=== PATIENT | female | born 1940 | race Caucasian/White ===

== ENCOUNTER 2017-10-08 09:06 | Day surgery (SDC) | payer MEDICARE, MEDICAID ==
[2017-10-07 16:13] LABS: BASOPHILS % (AUTO) 0.5 % (0-1); EOSINOPHILS # (AUTO) 0.2 X10'3 (0-0.9); EOSINOPHILS % (AUTO) 2.3 % (0-6); HEMATOCRIT 43.4 % (35.0-45.0); HEMOGLOBIN 14.3 g/dl (12.0-16.0); LYMPHOCYTES # (AUTO) 1.7 X10'3 (1.1-4.8); LYMPHOCYTES % (AUTO) 21.7 % (21-51); MEAN CORPUSCULAR VOLUME 81.8 FL (78-98); MEAN PLATELET VOLUME 10.2 FL (7.4-10.4); MONOCYTES # (AUTO) 0.5 X10'3 (0-0.9); NEUTROPHILS # (AUTO) 5.3 X10'3 (1.8-7.7); NEUTROPHILS % (AUTO) 68.5 % (42-75); PLATELET COUNT 132 X10'3 (140-440); WHITE BLOOD COUNT 7.8 X10'3 (4.5-11.0)
[2017-10-07 16:21] LABS: INR 1.1 INR
[2017-10-07 16:22] LABS: ALBUMIN 3.3 G/DL (3.4-5.0); ANION GAP 5 (8-16); BLOOD UREA NITROGEN 35 MG/DL (7-18); BUN/CREATININE RATIO 23.3 (6.6-38.0); CALCIUM 8.9 MG/DL (8.5-10.1); CHLORIDE 104 MMOL/L (99-107); GLUCOSE 127 MG/DL (70-104); POTASSIUM 4.6 MMOL/L (3.5-5.1); SODIUM 141 MMOL/L (135-145); TOTAL CARBON DIOXIDE 31.7 MMOL/L (24-32); eGFR 34 ML/MIN
[2017-10-08] VITALS (18 sets, daily range): BP systolic 75–121; BP diastolic 36–84
[~2017-10-08] VITALS: Ht 149.9 cm; Wt 116.9 kg
[~2017-10-08 09:06] MED LIST: ACET-2119 PO; CHOL10002 PO; DOCU100C41 PO; FLUT15.810; FURO-150 PO; LEVO75TA57 PO; LORA10TA7 PO; MULT-360; PANT40SU2 PO; PREG200C PO; RIVA20TA PO; SIMV20TA5 PO; TRAM50TA2 PO
[2017-10-08] MEDS ORDERED: PREG200C PO (11:52)
[2017-10-08] MEDS ORDERED: SIMV40TA4 PO (11:54)
[2017-10-08] MEDS ORDERED: LORA10TA7 PO (11:55)
[2017-10-08] MEDS ORDERED: SOTA80TA10 PO (11:57)
[2017-10-08] MEDS ORDERED: fentaNYL/PF 50MCG/1 ML 2ML syringe IV ONE (12:00)
[2017-10-08] MEDS ORDERED: LORazepam 0.5 MG tablet PO PRN (12:00)
[2017-10-08] MEDS ORDERED: MIDAZolam 1mg/ml 10ml vial IV ONE (12:00)
[2017-10-08] MEDS ORDERED: diphenhydrAMINE 25mg capsule PO PRN (12:00)
[2017-10-08] MEDS ORDERED: normal saline 1000ml 1,000 ML IV SCH (12:00)
[2017-10-08] MEDS ORDERED: LISI-604 PO (12:00)
[2017-10-08] MEDS ORDERED: atropine 0.1mg/ml 10ml syringe IV ONE (12:10)
[2017-10-08] MEDS ORDERED: amiodarone in dextrose, iso-osm 150mg/100ml bag IV ONE (12:10)
[2017-10-08] MEDS ORDERED: PREG100C PO (12:54)
== END 2017-10-08 18:35 | disposition home or self-care (01) ==
LOC: SSTAY O 09:06
PROVIDERS: ATTEND Internal Medicine Cardiovascular Disease
DX: I48.0 Paroxysmal atrial fibrillation (principal); I25.10 Atherosclerotic heart disease of native coronary artery without angina pectoris; I11.0 Hypertensive heart disease with heart failure; I50.32 Chronic diastolic (congestive) heart failure; E78.5 Hyperlipidemia, unspecified; I35.0 Nonrheumatic aortic (valve) stenosis; G47.30 Sleep apnea, unspecified; J44.9 Chronic obstructive pulmonary disease, unspecified
CPT/HCPCS: 36415; 80048; 85025; 85610; 92960; 93005; J0461; J2250; J3010; J7030; Q0163; A4620; J0282

== ENCOUNTER 2017-10-16 11:44 | Outpatient (CLI) | payer MEDICARE, MEDICAID ==
[~2017-10-16 11:44] MED LIST changes: -DOCU100C41 PO; -FLUT15.810; +LISI-604 PO; +PREG100C PO; -PREG200C PO; -SIMV20TA5 PO; +SIMV40TA4 PO; +SOTA80TA10 PO; -TRAM50TA2 PO
[2017-10-16 13:13] LABS: ANION GAP 9 (8-16); BLOOD UREA NITROGEN 17 MG/DL (7-18); BUN/CREATININE RATIO 16.3 (6.6-38.0); CHLORIDE 107 MMOL/L (99-107); CREATININE 1.04 MG/DL (0.40-0.90); GLUCOSE 134 MG/DL (70-104); POTASSIUM 4.8 MMOL/L (3.5-5.1); SODIUM 145 MMOL/L (135-145); TOTAL CARBON DIOXIDE 29.3 MMOL/L (24-32); eGFR 51 ML/MIN
== END 2017-10-16 23:59 | disposition home or self-care (01) ==
LOC: LAB 11:44
PROVIDERS: ATTEND Internal Medicine Cardiovascular Disease
DX: R06.02 Shortness of breath (principal); J45.909 Unspecified asthma, uncomplicated; I12.9 Hypertensive chronic kidney disease with stage 1 through stage 4 chronic kidney disease, or unspecified chronic kidney disease; E11.22 Type 2 diabetes mellitus with diabetic chronic kidney disease; N18.9 Chronic kidney disease, unspecified
CPT/HCPCS: 36415; 80048; 83880

== ENCOUNTER 2017-11-03 13:42 | Inpatient (IN) | payer MEDICARE, MEDICAID ==
[~2017-11-03] VITALS: Ht 149.9 cm; Wt 120.5 kg
[2017-11-03] MEDS ORDERED: normal saline 1000ml 1,000 ML IV ONE (14:07)
[2017-11-03 14:59] LABS: BASOPHILS % (AUTO) 0.4 % (0-1); EOSINOPHILS # (AUTO) 0.1 X10'3 (0-0.9); EOSINOPHILS % (AUTO) 1.6 % (0-6); HEMATOCRIT 39.3 % (35.0-45.0); LYMPHOCYTES # (AUTO) 1.9 X10'3 (1.1-4.8); MEAN CORPUSCULAR HEMOGLOBIN 26.6 PG (27.0-31.0); MEAN CORPUSCULAR VOLUME 80.6 FL (78-98); MEAN PLATELET VOLUME 10.1 FL (7.4-10.4); MONOCYTES # (AUTO) 0.7 X10'3 (0-0.9); MONOCYTES % (AUTO) 10.3 % (2-12); NEUTROPHILS # (AUTO) 4.3 X10'3 (1.8-7.7); NEUTROPHILS % (AUTO) 60.7 % (42-75); PLATELET COUNT 114 X10'3 (140-440); RED BLOOD COUNT 4.88 X10'6 (4.20-5.60); RED CELL DISTRIBUTION WIDTH 18.4 % (11.5-14.5); WHITE BLOOD COUNT 7.1 X10'3 (4.5-11.0)
[2017-11-03] MEDS ORDERED: NORepinephrine 1 mg/ml inj IV ONE (15:00)
[2017-11-03 15:09] LABS: INR 1.1 INR; PARTIAL THROMBOPLASTIN TIME 29 SECONDS (22-32); PROTHROMBIN TIME 11.3 SECONDS (9.0-12.0)
[2017-11-03 15:23] LABS: CREATINE KINASE 41 U/L (26-192)
[2017-11-03 16:17] LABS: ALANINE AMINOTRANSFERASE 13 U/L (12-78); ALBUMIN 3.1 G/DL (3.4-5.0); ALBUMIN/GLOBULIN RATIO 0.9 (1.1-1.5); ALKALINE PHOSPHATASE 66 IU/L (46-116); ANION GAP 10 (8-16); ASPARTATE AMINO TRANSFERASE 12 U/L (10-37); BILIRUBIN,TOTAL 0.8 MG/DL (0.1-1.0); BLOOD UREA NITROGEN 22 MG/DL (7-18); BUN/CREATININE RATIO 23.7 (6.6-38.0); CALCIUM 8.5 MG/DL (8.5-10.1); CHLORIDE 107 MMOL/L (99-107); CREATININE 0.93 MG/DL (0.40-0.90); GLUCOSE 94 MG/DL (70-104); SODIUM 145 MMOL/L (135-145); TOTAL CARBON DIOXIDE 27.9 MMOL/L (24-32); TOTAL PROTEIN 6.5 G/DL (6.4-8.2); eGFR 58 ML/MIN
[2017-11-03] MEDS ORDERED: iohexol 350MG/ML 100ml bottle IV ONE (18:03)
[2017-11-03] MEDS ORDERED: Fluticasone (18:05)
[2017-11-03] MEDS ORDERED: POTA20LI (18:05)
[2017-11-03] MEDS ORDERED: FLUT1AER (18:05)
[2017-11-03] MEDS ORDERED: DEXT15DR26 (18:05)
[2017-11-03] MEDS ORDERED: MONT10TA24 (18:05)
[2017-11-03] MEDS ORDERED: ROSU20TA38 (18:05)
[2017-11-03] MEDS ORDERED: DEXT15DR25 (18:05)
[2017-11-03 18:06] LABS: ABG HCO3 28.5 mmol/L (22.0-26.0); ABG PCO2 (T) 46.8 mmHg (32.0-45.0); ABG PH (T) 7.402 (7.350-7.450); ABG PO2 (T) 52.3 mmHg (83-108); ALLEN'S TEST Positive; FCOHb 1.3 % (0.5-1.5); FMetHb 0.1 % (0.3-1.12); FO2Hb 85.8 % (94-100); TOTAL HEMOGLOBIN 13.1 G/dl (12.0-16.0)
[2017-11-03] MEDS ORDERED: magnesium Cl slow-release 64mg tablet PO PRN (20:20)
[2017-11-03] MEDS ORDERED: potassium Cl 40MEQ/NS 500ml 500 ML IV PRN ×2 (20:20)
[2017-11-03] MEDS ORDERED: potassium Cl 20 mEq SR tablet PO PRN ×2 (20:20)
[2017-11-03] MEDS ORDERED: acetaminophen 325mg tablet PO PRN (20:20)
[2017-11-03] MEDS ORDERED: magnesium 2GM in 50ml NS 50 ML IV PRN (20:20)
[2017-11-03] MEDS ORDERED: mag hydrox/Alum hydrox/simeth 30ml oral suspension PO PRN (20:20)
[2017-11-03] MEDS ORDERED: insulin Lispro (HumaLOG) vial - multi-dose SQ SCH (20:20)
[2017-11-03] MEDS ORDERED: magnesium hydroxide 30ml (MOM) UD suspension PO PRN (20:20)
[2017-11-03] MEDS ORDERED: dextrose 50%-water 50ml dispensing syringe IV PRN ×2 (20:20)
[2017-11-03] MEDS ORDERED: bisacodyl 10mg suppository rectal RC PRN (20:20)
[2017-11-03] MEDS ORDERED: MESSAGE TO PHARMACY PO ONE (20:20)
[2017-11-03] MEDS ORDERED: glucagon, human recombinant 1mg kit SUBCUT PRN (20:20)
[2017-11-03] MEDS ORDERED: dextrose ORAL solution 15 GM/59 ML bottle PO PRN ×2 (20:20)
[2017-11-03] MEDS ORDERED: magnesium 4gm in 100ml NS 100 ML IV PRN (20:20)
[2017-11-03] MEDS ORDERED: ROSUVASTATIN CALCIUM 20 MG SCH (21:00)
[2017-11-03] MEDS: insulin glargine (Lantus) pen - multi-dose SQ SCH (21:00)
[2017-11-03] MEDS: rivaroxaban 20mg tablet PO SCH (21:02)
[2017-11-03] MEDS: levoFLOXACIN 750MG TABLET PO SCH (21:02)
[2017-11-03] MEDS: atorvastatin 20mg tablet PO SCH (21:03)
[2017-11-03] MEDS: methylPREDNISolone sod succ 125mg/2ml vial IV SCH (21:04)
[2017-11-03] MEDS: acetaminophen 325mg tablet PO PRN (22:36)
[2017-11-03 23:07] LABS: CLARITY,URINE CLEAR (Clear); COLOR,URINE YELLOW (Yellow); GLUCOSE, URINE NEGATIVE (Neg); KETONES,URINE NEGATIVE (Neg); LEUKOCYTE ESTERASE ,URINE NEGATIVE (Neg); NITRITES, URINE NEGATIVE (Neg); OCCULT BLOOD,URINE NEGATIVE (Neg); PH,URINE 5.5 (4.8-8.0); PROTEIN,URINE NEGATIVE (Neg); UROBILINOGEN,URINE 0.2 E.U/dL (0.2-1.0)
[2017-11-03 23:13] LABS: UA COLLECTION TYPE CLN CATCH MIDSTREAM
[2017-11-04] MEDS: ipratropium/albuterol 3ml nebule NEB SCH ×7 (00:26→23:55)
[2017-11-04] MEDS: methylPREDNISolone sod succ 125mg/2ml vial IV SCH ×3 (00:46→15:33)
[2017-11-04 02:38] LABS: BASOPHILS % (AUTO) 0 % (0-1); EOSINOPHILS # (AUTO) 0.1 X10'3 (0-0.9); EOSINOPHILS % (AUTO) 1.2 % (0-6); HEMATOCRIT 40.2 % (35.0-45.0); HEMOGLOBIN 13.2 g/dl (12.0-16.0); LYMPHOCYTES % (AUTO) 13.2 % (21-51); MEAN CORPUSCULAR HEMOGLOBIN 26.8 PG (27.0-31.0); MEAN CORPUSCULAR HGB CONC 32.8 % (33.0-36.5); MEAN CORPUSCULAR VOLUME 81.5 FL (78-98); MEAN PLATELET VOLUME 10.3 FL (7.4-10.4); MONOCYTES # (AUTO) 0.1 X10'3 (0-0.9); MONOCYTES % (AUTO) 1.2 % (2-12); NEUTROPHILS # (AUTO) 6.6 X10'3 (1.8-7.7); NEUTROPHILS % (AUTO) 84.4 % (42-75); PLATELET COUNT 99 X10'3 (140-440); RED BLOOD COUNT 4.93 X10'6 (4.20-5.60); WHITE BLOOD COUNT 7.8 X10'3 (4.5-11.0)
[2017-11-04 02:56] LABS: ALANINE AMINOTRANSFERASE 17 U/L (12-78); ALBUMIN/GLOBULIN RATIO 0.8 (1.1-1.5); ALKALINE PHOSPHATASE 67 IU/L (46-116); ANION GAP 6 (8-16); ASPARTATE AMINO TRANSFERASE 13 U/L (10-37); BILIRUBIN,TOTAL 0.6 MG/DL (0.1-1.0); BLOOD UREA NITROGEN 23 MG/DL (7-18); BUN/CREATININE RATIO 20.5 (6.6-38.0); CALCIUM 8.4 MG/DL (8.5-10.1); CHLORIDE 108 MMOL/L (99-107); CREATININE 1.12 MG/DL (0.40-0.90); GLUCOSE 151 MG/DL (70-104); MAGNESIUM 1.7 MG/DL (1.5-2.4); POTASSIUM 4.7 MMOL/L (3.5-5.1); SODIUM 144 MMOL/L (135-145); TOTAL CARBON DIOXIDE 29.8 MMOL/L (24-32); TOTAL PROTEIN 6.6 G/DL (6.4-8.2); eGFR 47 ML/MIN
[2017-11-04] MEDS: K and/or MAG REPLACEMENT MC SCH (07:19)
[2017-11-04] MEDS ORDERED: non-formulary drug (Pantoprazole Sodium (Protonix) 40 MG) PO SCH (08:00)
[2017-11-04] MEDS ORDERED: FLUTICASONE 50 MCG SCH (08:00)
[2017-11-04] MEDS ORDERED: non-formulary drug (Cholecalciferol (Vitamin D3) (Vitamin D3) 1 TAB) PO SCH (08:00)
[2017-11-04] MEDS: enoxaparin 40mg/0.4ml syringe SUBCUT SCH (08:00)
[2017-11-04] MEDS: fluticasone nasal spray 16GM bottle NS SCH (08:00)
[2017-11-04] MEDS ORDERED: non-formulary drug (Pregabalin (Lyrica) 1 CAP) PO SCH (08:00)
[2017-11-04] MEDS: docusate sod 100mg capsule PO SCH ×2 (08:56→20:23)
[2017-11-04] MEDS: lisinopril 5mg tablet PO SCH (08:56)
[2017-11-04] MEDS: loratadine 10mg tablet PO SCH (08:57)
[2017-11-04] MEDS: vitamin D (cholecalciferol) 1,000 unit tablet PO SCH (08:57)
[2017-11-04] MEDS: levoTHYROXINE 75mcg tablet PO SCH (08:58)
[2017-11-04] MEDS: levoFLOXACIN 750MG TABLET PO SCH (08:58)
[2017-11-04] MEDS: pregabalin 25mg capsule PO SCH ×2 (08:59→20:21)
[2017-11-04] MEDS: pantoprazole 40mg Tablet.DR PO SCH (09:00)
[2017-11-04] MEDS: montelukast 10mg tablet PO SCH (09:01)
[2017-11-04] MEDS: potassium Cl oral solution 20 MEQ/15 ML PO SCH (09:01)
[2017-11-04] MEDS: furosemide 20MG tablet PO SCH ×2 (09:02→20:22)
[2017-11-04 13:35] VITALS: BP 123/56
[2017-11-04 15:00] VITALS: BP 130/47
[2017-11-04] MEDS: lactobacillus rhamnosus 10,000 MMU CELLS/CAPSULE PO SCH (17:34)
[2017-11-04 19:00] VITALS: BP 145/68
[2017-11-04] MEDS: atorvastatin 20mg tablet PO SCH (20:24)
[2017-11-04] MEDS: rivaroxaban 20mg tablet PO SCH (20:24)
[2017-11-04] MEDS: insulin glargine (Lantus) pen - multi-dose SQ SCH (21:00)
[2017-11-04 23:00] VITALS: BP 125/46
[2017-11-05] MEDS: methylPREDNISolone sod succ 125mg/2ml vial IV SCH ×3 (00:29→16:21)
[2017-11-05 03:00] VITALS: BP 143/57
[2017-11-05] MEDS: ipratropium/albuterol 3ml nebule NEB SCH ×6 (03:46→23:47)
[2017-11-05 05:26] LABS: BASOPHILS % (AUTO) 0.1 % (0-1); EOSINOPHILS # (AUTO) 0.1 X10'3 (0-0.9); EOSINOPHILS % (AUTO) 1.1 % (0-6); HEMATOCRIT 39.9 % (35.0-45.0); LYMPHOCYTES # (AUTO) 0.9 X10'3 (1.1-4.8); LYMPHOCYTES % (AUTO) 13.8 % (21-51); MEAN CORPUSCULAR HEMOGLOBIN 26.4 PG (27.0-31.0); MEAN CORPUSCULAR HGB CONC 32.7 % (33.0-36.5); MEAN CORPUSCULAR VOLUME 80.9 FL (78-98); MEAN PLATELET VOLUME 10.5 FL (7.4-10.4); MONOCYTES # (AUTO) 0.1 X10'3 (0-0.9); MONOCYTES % (AUTO) 2.1 % (2-12); NEUTROPHILS # (AUTO) 5.5 X10'3 (1.8-7.7); NEUTROPHILS % (AUTO) 82.9 % (42-75); PLATELET COUNT 107 X10'3 (140-440); RED BLOOD COUNT 4.93 X10'6 (4.20-5.60); RED CELL DISTRIBUTION WIDTH 18.2 % (11.5-14.5); WHITE BLOOD COUNT 6.7 X10'3 (4.5-11.0)
[2017-11-05 05:41] LABS: ALANINE AMINOTRANSFERASE 18 U/L (12-78); ALBUMIN 3.2 G/DL (3.4-5.0); ALBUMIN/GLOBULIN RATIO 0.8 (1.1-1.5); ALKALINE PHOSPHATASE 62 IU/L (46-116); ANION GAP 7 (8-16); ASPARTATE AMINO TRANSFERASE 15 U/L (10-37); BILIRUBIN,TOTAL 0.6 MG/DL (0.1-1.0); BLOOD UREA NITROGEN 26 MG/DL (7-18); BUN/CREATININE RATIO 24.5 (6.6-38.0); CALCIUM 8.9 MG/DL (8.5-10.1); CHLORIDE 105 MMOL/L (99-107); CREATININE 1.06 MG/DL (0.40-0.90); GLUCOSE 174 MG/DL (70-104); MAGNESIUM 1.9 MG/DL (1.5-2.4); POTASSIUM 4.1 MMOL/L (3.5-5.1); SODIUM 144 MMOL/L (135-145); TOTAL CARBON DIOXIDE 31.6 MMOL/L (24-32); eGFR 50 ML/MIN
[2017-11-05 06:00] VITALS: BP 133/52
[2017-11-05] MEDS ORDERED: hypromellose ophthalmic drops EACHEYE SCH (08:00)
[2017-11-05] MEDS: K and/or MAG REPLACEMENT MC SCH (08:00)
[2017-11-05] MEDS: potassium Cl oral solution 20 MEQ/15 ML PO SCH (08:21)
[2017-11-05] MEDS: lisinopril 5mg tablet PO SCH (08:21)
[2017-11-05] MEDS: montelukast 10mg tablet PO SCH (08:21)
[2017-11-05] MEDS: lactobacillus rhamnosus 10,000 MMU CELLS/CAPSULE PO SCH ×2 (08:21→16:59)
[2017-11-05] MEDS: vitamin D (cholecalciferol) 1,000 unit tablet PO SCH (08:22)
[2017-11-05] MEDS: pantoprazole 40mg Tablet.DR PO SCH (08:22)
[2017-11-05] MEDS: levoTHYROXINE 75mcg tablet PO SCH (08:22)
[2017-11-05] MEDS: pregabalin 25mg capsule PO SCH ×2 (08:23→19:35)
[2017-11-05] MEDS: docusate sod 100mg capsule PO SCH ×2 (08:24→19:36)
[2017-11-05] MEDS: levoFLOXACIN 750MG TABLET PO SCH (08:24)
[2017-11-05] MEDS: loratadine 10mg tablet PO SCH (08:24)
[2017-11-05] MEDS: furosemide 20MG tablet PO SCH ×2 (08:24→19:36)
[2017-11-05] MEDS: fluticasone nasal spray 16GM bottle NS SCH (08:25)
[2017-11-05] MEDS: polyvinyl alcohol ophthalmic drops 15ml bottle EACHEYE SCH ×3 (08:26→21:00)
[2017-11-05] MEDS: enoxaparin 40mg/0.4ml syringe SUBCUT SCH (08:28)
[2017-11-05 11:00] VITALS: BP 140/55
[2017-11-05] MEDS: acetaminophen 325mg tablet PO PRN (12:35)
[2017-11-05 15:00] VITALS: BP 133/52
[2017-11-05 19:00] VITALS: BP 133/64
[2017-11-05] MEDS: sotalol 80mg tablet PO SCH (19:35)
[2017-11-05] MEDS: insulin glargine (Lantus) pen - multi-dose SQ SCH (21:00)
[2017-11-05] MEDS: rivaroxaban 20mg tablet PO SCH (22:30)
[2017-11-05] MEDS: atorvastatin 20mg tablet PO SCH (22:30)
[2017-11-05 23:00] VITALS: BP 134/61
[2017-11-06] MEDS: acetaminophen 325mg tablet PO PRN ×3 (02:59→19:32)
[2017-11-06 03:00] VITALS: BP 129/58
[2017-11-06] MEDS: ipratropium/albuterol 3ml nebule NEB SCH ×6 (03:51→23:05)
[2017-11-06 05:30] VITALS: BP 138/71
[2017-11-06 05:57] LABS: BASOPHILS % (AUTO) 0.2 % (0-1); EOSINOPHILS # (AUTO) 0.1 X10'3 (0-0.9); EOSINOPHILS % (AUTO) 1.4 % (0-6); HEMATOCRIT 39.7 % (35.0-45.0); HEMOGLOBIN 13.1 g/dl (12.0-16.0); LYMPHOCYTES # (AUTO) 1.1 X10'3 (1.1-4.8); LYMPHOCYTES % (AUTO) 15.4 % (21-51); MEAN CORPUSCULAR HEMOGLOBIN 26.5 PG (27.0-31.0); MEAN CORPUSCULAR HGB CONC 32.9 % (33.0-36.5); MEAN CORPUSCULAR VOLUME 80.6 FL (78-98); MEAN PLATELET VOLUME 10.6 FL (7.4-10.4); MONOCYTES # (AUTO) 0.6 X10'3 (0-0.9); MONOCYTES % (AUTO) 8.2 % (2-12); NEUTROPHILS # (AUTO) 5.5 X10'3 (1.8-7.7); NEUTROPHILS % (AUTO) 74.8 % (42-75); PLATELET COUNT 113 X10'3 (140-440); RED BLOOD COUNT 4.92 X10'6 (4.20-5.60); RED CELL DISTRIBUTION WIDTH 18.6 % (11.5-14.5); WHITE BLOOD COUNT 7.4 X10'3 (4.5-11.0)
[2017-11-06 06:42] LABS: ALANINE AMINOTRANSFERASE 18 U/L (12-78); ALBUMIN 3.1 G/DL (3.4-5.0); ALBUMIN/GLOBULIN RATIO 0.8 (1.1-1.5); ALKALINE PHOSPHATASE 53 IU/L (46-116); ANION GAP 7 (8-16); ASPARTATE AMINO TRANSFERASE 15 U/L (10-37); BILIRUBIN,TOTAL 0.6 MG/DL (0.1-1.0); BLOOD UREA NITROGEN 39 MG/DL (7-18); BUN/CREATININE RATIO 32.2 (6.6-38.0); CALCIUM 8.6 MG/DL (8.5-10.1); CHLORIDE 103 MMOL/L (99-107); CREATININE 1.21 MG/DL (0.40-0.90); GLUCOSE 142 MG/DL (70-104); MAGNESIUM 1.8 MG/DL (1.5-2.4); POTASSIUM 3.7 MMOL/L (3.5-5.1); SODIUM 144 MMOL/L (135-145); TOTAL CARBON DIOXIDE 33.6 MMOL/L (24-32); TOTAL PROTEIN 6.8 G/DL (6.4-8.2); eGFR 43 ML/MIN
[2017-11-06] MEDS: loratadine 10mg tablet PO SCH (08:00)
[2017-11-06] MEDS: pregabalin 25mg capsule PO SCH ×2 (08:00→19:32)
[2017-11-06] MEDS: lactobacillus rhamnosus 10,000 MMU CELLS/CAPSULE PO SCH ×2 (08:00→17:26)
[2017-11-06] MEDS: K and/or MAG REPLACEMENT MC SCH (08:00)
[2017-11-06] MEDS: sotalol 80mg tablet PO SCH ×3 (08:00→20:33)
[2017-11-06] MEDS: fluticasone nasal spray 16GM bottle NS SCH (08:01)
[2017-11-06] MEDS: pantoprazole 40mg Tablet.DR PO SCH (08:01)
[2017-11-06] MEDS: furosemide 20MG tablet PO SCH ×2 (08:02→19:32)
[2017-11-06] MEDS: lisinopril 5mg tablet PO SCH (08:02)
[2017-11-06] MEDS: montelukast 10mg tablet PO SCH (08:02)
[2017-11-06] MEDS: levoTHYROXINE 75mcg tablet PO SCH (08:02)
[2017-11-06] MEDS: vitamin D (cholecalciferol) 1,000 unit tablet PO SCH (08:02)
[2017-11-06] MEDS: polyvinyl alcohol ophthalmic drops 15ml bottle EACHEYE SCH ×3 (08:04→20:17)
[2017-11-06] MEDS: docusate sod 100mg capsule PO SCH ×2 (08:04→19:32)
[2017-11-06] MEDS: potassium Cl oral solution 20 MEQ/15 ML PO SCH (08:04)
[2017-11-06] MEDS: ondansetron/PF 4mg/2ml inj IV PRN (10:51)
[2017-11-06 11:00] VITALS: BP 136/53
[2017-11-06 15:00] VITALS: BP 104/73
[2017-11-06] MEDS: atorvastatin 20mg tablet PO SCH (20:17)
[2017-11-06] MEDS: rivaroxaban 20mg tablet PO SCH (20:17)
[2017-11-06] MEDS: insulin glargine (Lantus) pen - multi-dose SQ SCH (20:18)
[2017-11-06 22:00] VITALS: BP 103/53
[2017-11-06] MEDS ORDERED: magnesium 2GM in 50ml NS 50 ML IV ONE (22:10)
[2017-11-07] VITALS (7 sets, daily range): BP systolic 103–118; BP diastolic 35–54
[2017-11-07] MEDS: acetaminophen 325mg tablet PO PRN (01:30)
[2017-11-07] MEDS: ipratropium/albuterol 3ml nebule NEB SCH ×6 (02:53→23:04)
[2017-11-07 07:01] LABS: BASOPHILS % (AUTO) 0.2 % (0-1); EOSINOPHILS # (AUTO) 0.1 X10'3 (0-0.9); HEMATOCRIT 40.1 % (35.0-45.0); LYMPHOCYTES % (AUTO) 34.2 % (21-51); MEAN CORPUSCULAR HEMOGLOBIN 26.5 PG (27.0-31.0); MEAN CORPUSCULAR HGB CONC 32.4 % (33.0-36.5); MEAN CORPUSCULAR VOLUME 81.7 FL (78-98); MEAN PLATELET VOLUME 10.6 FL (7.4-10.4); MONOCYTES # (AUTO) 0.9 X10'3 (0-0.9); MONOCYTES % (AUTO) 14.9 % (2-12); NEUTROPHILS # (AUTO) 2.8 X10'3 (1.8-7.7); NEUTROPHILS % (AUTO) 49.7 % (42-75); PLATELET COUNT 104 X10'3 (140-440); RED BLOOD COUNT 4.91 X10'6 (4.20-5.60); RED CELL DISTRIBUTION WIDTH 18.8 % (11.5-14.5); WHITE BLOOD COUNT 5.7 X10'3 (4.5-11.0)
[2017-11-07] MEDS: fluticasone nasal spray 16GM bottle NS SCH (07:27)
[2017-11-07] MEDS: polyvinyl alcohol ophthalmic drops 15ml bottle EACHEYE SCH ×3 (07:27→20:30)
[2017-11-07] MEDS: lisinopril 5mg tablet PO SCH (07:28)
[2017-11-07] MEDS: furosemide 20MG tablet PO SCH ×2 (07:28→20:29)
[2017-11-07] MEDS: loratadine 10mg tablet PO SCH (07:28)
[2017-11-07] MEDS: levoTHYROXINE 75mcg tablet PO SCH (07:29)
[2017-11-07] MEDS: vitamin D (cholecalciferol) 1,000 unit tablet PO SCH (07:29)
[2017-11-07] MEDS: pantoprazole 40mg Tablet.DR PO SCH (07:29)
[2017-11-07] MEDS: lactobacillus rhamnosus 10,000 MMU CELLS/CAPSULE PO SCH ×2 (07:29→20:29)
[2017-11-07] MEDS: montelukast 10mg tablet PO SCH (07:29)
[2017-11-07] MEDS: docusate sod 100mg capsule PO SCH ×2 (07:29→20:29)
[2017-11-07] MEDS: levoFLOXACIN 750MG TABLET PO SCH (07:30)
[2017-11-07] MEDS: potassium Cl oral solution 20 MEQ/15 ML PO SCH (07:30)
[2017-11-07] MEDS: pregabalin 25mg capsule PO SCH ×2 (07:30→20:29)
[2017-11-07 07:33] LABS: ALANINE AMINOTRANSFERASE 22 U/L (12-78); ALBUMIN 2.8 G/DL (3.4-5.0); ALBUMIN/GLOBULIN RATIO 0.9 (1.1-1.5); ALKALINE PHOSPHATASE 46 IU/L (46-116); ANION GAP 4 (8-16); ASPARTATE AMINO TRANSFERASE 19 U/L (10-37); BILIRUBIN,TOTAL 0.6 MG/DL (0.1-1.0); BLOOD UREA NITROGEN 45 MG/DL (7-18); BUN/CREATININE RATIO 34.4 (6.6-38.0); CHLORIDE 104 MMOL/L (99-107); CREATININE 1.31 MG/DL (0.40-0.90); GLUCOSE 84 MG/DL (70-104); MAGNESIUM 2.4 MG/DL (1.5-2.4); POTASSIUM 3.9 MMOL/L (3.5-5.1); SODIUM 145 MMOL/L (135-145); TOTAL CARBON DIOXIDE 36.8 MMOL/L (24-32); eGFR 39 ML/MIN
[2017-11-07] MEDS: K and/or MAG REPLACEMENT MC SCH (07:41)
[2017-11-07 08:23] LABS: LARGE PLATELETS FEW; PLATELET ESTIMATE DECREASED
[2017-11-07] MEDS: sotalol 80mg tablet PO SCH ×2 (09:32→20:28)
[2017-11-07] MEDS: ondansetron/PF 4mg/2ml inj IV PRN (17:47)
[2017-11-07] MEDS: rivaroxaban 20mg tablet PO SCH (20:28)
[2017-11-07] MEDS: atorvastatin 20mg tablet PO SCH (20:29)
[2017-11-07] MEDS: insulin glargine (Lantus) pen - multi-dose SQ SCH (20:57)
[2017-11-08] VITALS (15 sets, daily range): BP systolic 77–115; BP diastolic 37–87
[2017-11-08] MEDS: ipratropium/albuterol 3ml nebule NEB SCH ×6 (03:28→22:55)
[2017-11-08 06:36] LABS: BASOPHILS % (AUTO) 0.4 % (0-1); EOSINOPHILS # (AUTO) 0.1 X10'3 (0-0.9); EOSINOPHILS % (AUTO) 1.2 % (0-6); HEMATOCRIT 41.2 % (35.0-45.0); HEMOGLOBIN 13.4 g/dl (12.0-16.0); LYMPHOCYTES # (AUTO) 1.9 X10'3 (1.1-4.8); LYMPHOCYTES % (AUTO) 19.8 % (21-51); MEAN CORPUSCULAR HEMOGLOBIN 26.4 PG (27.0-31.0); MEAN CORPUSCULAR HGB CONC 32.5 % (33.0-36.5); MEAN CORPUSCULAR VOLUME 81.1 FL (78-98); MEAN PLATELET VOLUME 10.6 FL (7.4-10.4); MONOCYTES # (AUTO) 1.1 X10'3 (0-0.9); MONOCYTES % (AUTO) 11.4 % (2-12); NEUTROPHILS # (AUTO) 6.3 X10'3 (1.8-7.7); NEUTROPHILS % (AUTO) 67.2 % (42-75); PLATELET COUNT 104 X10'3 (140-440); RED BLOOD COUNT 5.07 X10'6 (4.20-5.60); RED CELL DISTRIBUTION WIDTH 18.3 % (11.5-14.5); WHITE BLOOD COUNT 9.4 X10'3 (4.5-11.0)
[2017-11-08 06:54] LABS: ALANINE AMINOTRANSFERASE 21 U/L (12-78); ALBUMIN 2.7 G/DL (3.4-5.0); ALBUMIN/GLOBULIN RATIO 0.8 (1.1-1.5); ALKALINE PHOSPHATASE 56 IU/L (46-116); ANION GAP 5 (8-16); ASPARTATE AMINO TRANSFERASE 16 U/L (10-37); BILIRUBIN,TOTAL 0.7 MG/DL (0.1-1.0); BLOOD UREA NITROGEN 52 MG/DL (7-18); CALCIUM 7.8 MG/DL (8.5-10.1); CHLORIDE 102 MMOL/L (99-107); GLUCOSE 86 MG/DL (70-104); MAGNESIUM 2.5 MG/DL (1.5-2.4); POTASSIUM 4.1 MMOL/L (3.5-5.1); SODIUM 142 MMOL/L (135-145); TOTAL CARBON DIOXIDE 35.1 MMOL/L (24-32); TOTAL PROTEIN 5.9 G/DL (6.4-8.2); eGFR 40 ML/MIN
[2017-11-08 07:04] LABS: LARGE PLATELETS FEW; PLATELET ESTIMATE DECREASED
[2017-11-08] MEDS: K and/or MAG REPLACEMENT MC SCH (08:00)
[2017-11-08 08:30] LABS: ABG BASE EXCESS 7.2 mmol/L (-2.0-3.0); ABG HCO3 33.6 mmol/L (22.0-26.0); ABG OXYGEN SATURATION 89.6 % (95-98); ABG PCO2 (T) 54.5 mmHg (32.0-45.0); ABG PH (T) 7.408 (7.350-7.450); ABG PO2 (T) 57.5 mmHg (83-108); ALLEN'S TEST Positive; FCOHb 0.7 % (0.5-1.5); FMetHb 0.2 % (0.3-1.12); FO2Hb 88.8 % (94-100); PEEP 5 cm H2O; TOTAL HEMOGLOBIN 14.3 G/dl (12.0-16.0)
[2017-11-08] MEDS: potassium Cl oral solution 20 MEQ/15 ML PO SCH (08:31)
[2017-11-08] MEDS: lisinopril 5mg tablet PO SCH (08:31)
[2017-11-08] MEDS: vitamin D (cholecalciferol) 1,000 unit tablet PO SCH (08:31)
[2017-11-08] MEDS: pantoprazole 40mg Tablet.DR PO SCH (08:31)
[2017-11-08] MEDS: pregabalin 25mg capsule PO SCH ×2 (08:31→20:33)
[2017-11-08] MEDS: docusate sod 100mg capsule PO SCH ×2 (08:31→20:32)
[2017-11-08] MEDS: montelukast 10mg tablet PO SCH (08:31)
[2017-11-08] MEDS: sotalol 80mg tablet PO SCH (08:32)
[2017-11-08] MEDS: furosemide 20MG tablet PO SCH (08:32)
[2017-11-08] MEDS: levoTHYROXINE 75mcg tablet PO SCH (08:32)
[2017-11-08] MEDS: lactobacillus rhamnosus 10,000 MMU CELLS/CAPSULE PO SCH ×2 (08:33→20:32)
[2017-11-08] MEDS: fluticasone nasal spray 16GM bottle NS SCH (08:33)
[2017-11-08] MEDS: polyvinyl alcohol ophthalmic drops 15ml bottle EACHEYE SCH ×3 (08:33→20:35)
[2017-11-08] MEDS: loratadine 10mg tablet PO SCH (08:33)
[2017-11-08] MEDS ORDERED: LIDOcaine 1%/PF (10mg/ml) 5ml vial ONE (12:21)
[2017-11-08] MEDS ORDERED: iohexol 350 MG/1 ML 200ml bottle ONE (12:21)
[2017-11-08] MEDS: traMADol 50MG tablet PO PRN ×2 (14:03→20:35)
[2017-11-08] MEDS: vancomycin/NS 1 GM ADD-VANTAGE 250 ML IV SCH ×2 (17:36→19:26)
[2017-11-08] MEDS: atorvastatin 20mg tablet PO SCH (20:33)
[2017-11-08] MEDS: rivaroxaban 20mg tablet PO SCH (20:37)
[2017-11-08] MEDS: insulin glargine (Lantus) pen - multi-dose SQ SCH (20:37)
[2017-11-09] VITALS (18 sets, daily range): BP systolic 83–113; BP diastolic 38–63
[2017-11-09] MEDS ORDERED: vancomycin inj 500 MG in normal saline 100ml IV soln 100 ML IV SCH ×2 (03:00→05:00)
[2017-11-09] MEDS: ipratropium/albuterol 3ml nebule NEB SCH ×6 (03:13→23:26)
[2017-11-09 06:26] LABS: BASOPHILS % (AUTO) 0.3 % (0-1); EOSINOPHILS # (AUTO) 0.2 X10'3 (0-0.9); EOSINOPHILS % (AUTO) 2.4 % (0-6); HEMATOCRIT 38.7 % (35.0-45.0); HEMOGLOBIN 12.5 g/dl (12.0-16.0); LYMPHOCYTES # (AUTO) 1.3 X10'3 (1.1-4.8); LYMPHOCYTES % (AUTO) 13.7 % (21-51); MEAN CORPUSCULAR HEMOGLOBIN 26.2 PG (27.0-31.0); MEAN CORPUSCULAR HGB CONC 32.4 % (33.0-36.5); MEAN CORPUSCULAR VOLUME 80.8 FL (78-98); MEAN PLATELET VOLUME 11.6 FL (7.4-10.4); MONOCYTES # (AUTO) 0.9 X10'3 (0-0.9); MONOCYTES % (AUTO) 9.1 % (2-12); NEUTROPHILS % (AUTO) 74.5 % (42-75); PLATELET COUNT 85 X10'3 (140-440); RED BLOOD COUNT 4.79 X10'6 (4.20-5.60); RED CELL DISTRIBUTION WIDTH 18.9 % (11.5-14.5); WHITE BLOOD COUNT 9.4 X10'3 (4.5-11.0)
[2017-11-09 06:35] LABS: ALBUMIN 2.6 G/DL (3.4-5.0); ANION GAP 10 (8-16); BLOOD UREA NITROGEN 39 MG/DL (7-18); BUN/CREATININE RATIO 39.8 (6.6-38.0); CALCIUM 7.9 MG/DL (8.5-10.1); CHLORIDE 103 MMOL/L (99-107); CREATININE 0.98 MG/DL (0.40-0.90); GLUCOSE 94 MG/DL (70-104); POTASSIUM 4.3 MMOL/L (3.5-5.1); SODIUM 142 MMOL/L (135-145); TOTAL CARBON DIOXIDE 29.4 MMOL/L (24-32); eGFR 55 ML/MIN
[2017-11-09] MEDS: vitamin D (cholecalciferol) 1,000 unit tablet PO SCH (07:40)
[2017-11-09] MEDS: loratadine 10mg tablet PO SCH (07:40)
[2017-11-09] MEDS: montelukast 10mg tablet PO SCH (07:40)
[2017-11-09] MEDS: pantoprazole 40mg Tablet.DR PO SCH (07:40)
[2017-11-09] MEDS: docusate sod 100mg capsule PO SCH ×2 (07:40→20:00)
[2017-11-09] MEDS: potassium Cl oral solution 20 MEQ/15 ML PO SCH (07:40)
[2017-11-09] MEDS: pregabalin 25mg capsule PO SCH ×2 (07:40→20:33)
[2017-11-09] MEDS: levoTHYROXINE 75mcg tablet PO SCH (07:40)
[2017-11-09] MEDS: polyvinyl alcohol ophthalmic drops 15ml bottle EACHEYE SCH ×3 (07:40→20:34)
[2017-11-09] MEDS: levoFLOXACIN 750MG TABLET PO SCH (07:40)
[2017-11-09] MEDS: K and/or MAG REPLACEMENT MC SCH (07:41)
[2017-11-09] MEDS: fluticasone nasal spray 16GM bottle NS SCH (07:41)
[2017-11-09] MEDS: lactobacillus rhamnosus 10,000 MMU CELLS/CAPSULE PO SCH ×2 (07:43→20:32)
[2017-11-09] MEDS: traMADol 50MG tablet PO PRN ×2 (07:49→13:49)
[2017-11-09] MEDS: VANCOMYCIN 750MG IV in NS 250 ML IV SCH (17:13)
[2017-11-09] MEDS: rivaroxaban 20mg tablet PO SCH (20:34)
[2017-11-09] MEDS: atorvastatin 20mg tablet PO SCH (20:34)
[2017-11-09] MEDS: insulin glargine (Lantus) pen - multi-dose SQ SCH (21:00)
[2017-11-10] MEDS: ipratropium/albuterol 3ml nebule NEB SCH ×5 (03:06→20:25)
[2017-11-10] MEDS: VANCOMYCIN 750MG IV in NS 250 ML IV SCH ×2 (04:46→17:17)
[2017-11-10 05:45] LABS: ALBUMIN 2.4 G/DL (3.4-5.0); ANION GAP 5 (8-16); BLOOD UREA NITROGEN 21 MG/DL (7-18); BUN/CREATININE RATIO 25.6 (6.6-38.0); CALCIUM 8.2 MG/DL (8.5-10.1); CHLORIDE 105 MMOL/L (99-107); CREATININE 0.82 MG/DL (0.40-0.90); GLUCOSE 108 MG/DL (70-104); POTASSIUM 4.4 MMOL/L (3.5-5.1); SODIUM 143 MMOL/L (135-145); TOTAL CARBON DIOXIDE 33.5 MMOL/L (24-32); eGFR 68 ML/MIN
[2017-11-10 06:00] VITALS: BP 116/50
[2017-11-10] MEDS: K and/or MAG REPLACEMENT MC SCH (08:00)
[2017-11-10] MEDS: docusate sod 100mg capsule PO SCH ×2 (08:00→20:07)
[2017-11-10] MEDS: furosemide 20MG tablet PO SCH ×2 (08:45→20:08)
[2017-11-10] MEDS: pantoprazole 40mg Tablet.DR PO SCH (09:02)
[2017-11-10] MEDS: loratadine 10mg tablet PO SCH (09:10)
[2017-11-10] MEDS: lactobacillus rhamnosus 10,000 MMU CELLS/CAPSULE PO SCH ×2 (09:10→20:08)
[2017-11-10] MEDS: pregabalin 25mg capsule PO SCH ×2 (09:11→20:08)
[2017-11-10] MEDS: montelukast 10mg tablet PO SCH (09:14)
[2017-11-10] MEDS: levoTHYROXINE 75mcg tablet PO SCH (09:14)
[2017-11-10] MEDS: potassium Cl oral solution 20 MEQ/15 ML PO SCH (09:14)
[2017-11-10] MEDS: vitamin D (cholecalciferol) 1,000 unit tablet PO SCH (09:14)
[2017-11-10] MEDS: fluticasone nasal spray 16GM bottle NS SCH (09:18)
[2017-11-10] MEDS: polyvinyl alcohol ophthalmic drops 15ml bottle EACHEYE SCH ×3 (09:19→20:08)
[2017-11-10 11:00] VITALS: BP 121/45
[2017-11-10] MEDS: traMADol 50MG tablet PO PRN ×2 (14:00→23:02)
[2017-11-10 15:00] VITALS: BP 112/41
[2017-11-10] MEDS ORDERED: VANCOMYCIN LEVEL IV ONE (16:30)
[2017-11-10 18:30] VITALS: BP 117/47
[2017-11-10] MEDS: atorvastatin 20mg tablet PO SCH (20:08)
[2017-11-10] MEDS: rivaroxaban 20mg tablet PO SCH (20:08)
[2017-11-10] MEDS: insulin glargine (Lantus) pen - multi-dose SQ SCH (20:17)
[2017-11-10 22:30] VITALS: BP 133/49
[2017-11-11] MEDS: ipratropium/albuterol 3ml nebule NEB SCH ×6 (00:17→23:00)
[2017-11-11 02:00] VITALS: BP 119/46
[2017-11-11] MEDS: ondansetron/PF 4mg/2ml inj IV PRN ×2 (04:26→10:37)
[2017-11-11] MEDS ORDERED: VANCOMYCIN LEVEL IV ONE (04:30)
[2017-11-11] MEDS: VANCOMYCIN 750MG IV in NS 250 ML IV SCH ×2 (04:35→17:02)
[2017-11-11 05:26] LABS: ALBUMIN 2.5 G/DL (3.4-5.0); ANION GAP 3 (8-16); BLOOD UREA NITROGEN 16 MG/DL (7-18); BUN/CREATININE RATIO 20.3 (6.6-38.0); CALCIUM 8.3 MG/DL (8.5-10.1); CHLORIDE 103 MMOL/L (99-107); CREATININE 0.79 MG/DL (0.40-0.90); GLUCOSE 113 MG/DL (70-104); SODIUM 143 MMOL/L (135-145); TOTAL CARBON DIOXIDE 37.3 MMOL/L (24-32); VANCOMYCIN,TROUGH 15.4 UG/ML (6.0-14.0); eGFR 71 ML/MIN
[2017-11-11] MEDS: K and/or MAG REPLACEMENT MC SCH (08:00)
[2017-11-11] MEDS: potassium Cl oral solution 20 MEQ/15 ML PO SCH (08:20)
[2017-11-11] MEDS: loratadine 10mg tablet PO SCH (08:20)
[2017-11-11] MEDS: pregabalin 25mg capsule PO SCH ×2 (08:20→20:40)
[2017-11-11] MEDS: pantoprazole 40mg Tablet.DR PO SCH (08:20)
[2017-11-11] MEDS: polyvinyl alcohol ophthalmic drops 15ml bottle EACHEYE SCH ×3 (08:20→20:40)
[2017-11-11] MEDS: levoTHYROXINE 75mcg tablet PO SCH (08:20)
[2017-11-11] MEDS: vitamin D (cholecalciferol) 1,000 unit tablet PO SCH (08:20)
[2017-11-11] MEDS: montelukast 10mg tablet PO SCH (08:20)
[2017-11-11] MEDS: levoFLOXACIN 750MG TABLET PO SCH (08:20)
[2017-11-11] MEDS: lactobacillus rhamnosus 10,000 MMU CELLS/CAPSULE PO SCH ×2 (08:20→20:39)
[2017-11-11] MEDS: furosemide 20MG tablet PO SCH ×2 (08:20→20:40)
[2017-11-11] MEDS: docusate sod 100mg capsule PO SCH ×2 (08:20→20:39)
[2017-11-11] MEDS: fluticasone nasal spray 16GM bottle NS SCH (08:21)
[2017-11-11 09:58] VITALS: BP 114/69
[2017-11-11 11:00] VITALS: BP 133/69
[2017-11-11 15:00] VITALS: BP 122/70
[2017-11-11] MEDS ORDERED: sodium bicarbonate (8.4%) 1 mEq/ml syringe ONE (15:00)
[2017-11-11 18:00] VITALS: BP 140/60
[2017-11-11] MEDS: atorvastatin 20mg tablet PO SCH (20:39)
[2017-11-11] MEDS: rivaroxaban 20mg tablet PO SCH (20:40)
[2017-11-11] MEDS: traMADol 50MG tablet PO PRN (20:45)
[2017-11-11] MEDS: insulin glargine (Lantus) pen - multi-dose SQ SCH (21:00)
[2017-11-11 22:00] VITALS: BP 123/55
[2017-11-12 02:00] VITALS: BP 103/39
[2017-11-12] MEDS: ipratropium/albuterol 3ml nebule NEB SCH ×5 (03:00→23:00)
[2017-11-12] MEDS: traMADol 50MG tablet PO PRN ×2 (04:07→21:47)
[2017-11-12] MEDS: VANCOMYCIN 750MG IV in NS 250 ML IV SCH (04:07)
[2017-11-12 05:59] LABS: ALBUMIN 2.3 G/DL (3.4-5.0); ANION GAP 5 (8-16); BLOOD UREA NITROGEN 18 MG/DL (7-18); BUN/CREATININE RATIO 17.1 (6.6-38.0); CALCIUM 8.3 MG/DL (8.5-10.1); CHLORIDE 102 MMOL/L (99-107); CREATININE 1.05 MG/DL (0.40-0.90); GLUCOSE 123 MG/DL (70-104); POTASSIUM 3.7 MMOL/L (3.5-5.1); SODIUM 144 MMOL/L (135-145); TOTAL CARBON DIOXIDE 36.8 MMOL/L (24-32); eGFR 51 ML/MIN
[2017-11-12 07:00] VITALS: BP 127/66
[2017-11-12] MEDS: K and/or MAG REPLACEMENT MC SCH (08:00)
[2017-11-12] MEDS: montelukast 10mg tablet PO SCH (08:32)
[2017-11-12] MEDS: docusate sod 100mg capsule PO SCH ×2 (08:32→19:05)
[2017-11-12] MEDS: pregabalin 25mg capsule PO SCH ×2 (08:33→19:05)
[2017-11-12] MEDS: levoTHYROXINE 75mcg tablet PO SCH (08:33)
[2017-11-12] MEDS: pantoprazole 40 MG vial IV SCH (08:33)
[2017-11-12] MEDS: polyvinyl alcohol ophthalmic drops 15ml bottle EACHEYE SCH ×3 (08:33→21:46)
[2017-11-12] MEDS: furosemide 20MG tablet PO SCH ×2 (08:33→19:05)
[2017-11-12] MEDS: potassium Cl oral solution 20 MEQ/15 ML PO SCH (08:33)
[2017-11-12] MEDS: loratadine 10mg tablet PO SCH (08:33)
[2017-11-12] MEDS: lactobacillus rhamnosus 10,000 MMU CELLS/CAPSULE PO SCH ×2 (08:33→19:05)
[2017-11-12] MEDS: vitamin D (cholecalciferol) 1,000 unit tablet PO SCH (08:33)
[2017-11-12] MEDS: fluticasone nasal spray 16GM bottle NS SCH (08:34)
[2017-11-12] MEDS: ondansetron/PF 4mg/2ml inj IV PRN (08:44)
[2017-11-12 11:00] VITALS: BP 110/59
[2017-11-12 15:00] VITALS: BP 140/62
[2017-11-12] MEDS: predniSONE 20 mg tablet PO SCH (15:46)
[2017-11-12 19:00] VITALS: BP_SYST 126; BP_SYST 133; BP_DIAS 66; BP_DIAS 67
[2017-11-12] MEDS: insulin glargine (Lantus) pen - multi-dose SQ SCH (21:00)
[2017-11-12] MEDS: rivaroxaban 20mg tablet PO SCH (21:46)
[2017-11-12] MEDS: atorvastatin 20mg tablet PO SCH (21:46)
[2017-11-12 23:00] VITALS: BP 133/66
[2017-11-13 03:00] VITALS: BP 118/75
[2017-11-13] MEDS ORDERED: ipratropium/albuterol 3ml nebule NEB PRN (05:15)
[2017-11-13 05:30] LABS: BASOPHILS % (AUTO) 0.3 % (0-1); EOSINOPHILS # (AUTO) 0.1 X10'3 (0-0.9); EOSINOPHILS % (AUTO) 1.7 % (0-6); HEMATOCRIT 38.7 % (35.0-45.0); HEMOGLOBIN 12.5 g/dl (12.0-16.0); LYMPHOCYTES # (AUTO) 0.9 X10'3 (1.1-4.8); LYMPHOCYTES % (AUTO) 13.9 % (21-51); MEAN CORPUSCULAR HEMOGLOBIN 26.3 PG (27.0-31.0); MEAN CORPUSCULAR HGB CONC 32.4 % (33.0-36.5); MEAN CORPUSCULAR VOLUME 81.3 FL (78-98); MEAN PLATELET VOLUME 10.9 FL (7.4-10.4); MONOCYTES # (AUTO) 0.3 X10'3 (0-0.9); MONOCYTES % (AUTO) 4.4 % (2-12); NEUTROPHILS % (AUTO) 79.7 % (42-75); PLATELET COUNT 102 X10'3 (140-440); RED BLOOD COUNT 4.76 X10'6 (4.20-5.60); RED CELL DISTRIBUTION WIDTH 18.8 % (11.5-14.5); WHITE BLOOD COUNT 6.3 X10'3 (4.5-11.0)
[2017-11-13 06:00] VITALS: BP 151/71
[2017-11-13 06:17] LABS: ALBUMIN 2.6 G/DL (3.4-5.0); ANION GAP 5 (8-16); BLOOD UREA NITROGEN 21 MG/DL (7-18); BUN/CREATININE RATIO 23.6 (6.6-38.0); CHLORIDE 99 MMOL/L (99-107); CREATININE 0.89 MG/DL (0.40-0.90); GLUCOSE 166 MG/DL (70-104); SODIUM 143 MMOL/L (135-145); TOTAL CARBON DIOXIDE 38.8 MMOL/L (24-32); eGFR 62 ML/MIN
[2017-11-13] MEDS: levoFLOXACIN 750MG TABLET PO SCH (08:00)
[2017-11-13] MEDS: K and/or MAG REPLACEMENT MC SCH (08:00)
[2017-11-13] MEDS: polyvinyl alcohol ophthalmic drops 15ml bottle EACHEYE SCH ×3 (09:25→19:30)
[2017-11-13] MEDS: fluticasone nasal spray 16GM bottle NS SCH (09:26)
[2017-11-13] MEDS: montelukast 10mg tablet PO SCH (09:27)
[2017-11-13] MEDS: lactobacillus rhamnosus 10,000 MMU CELLS/CAPSULE PO SCH ×2 (09:27→19:31)
[2017-11-13] MEDS: predniSONE 20 mg tablet PO SCH (09:27)
[2017-11-13] MEDS: docusate sod 100mg capsule PO SCH ×2 (09:27→19:30)
[2017-11-13] MEDS: furosemide 20MG tablet PO SCH ×2 (09:27→19:31)
[2017-11-13] MEDS: vitamin D (cholecalciferol) 1,000 unit tablet PO SCH (09:27)
[2017-11-13] MEDS: potassium Cl oral solution 20 MEQ/15 ML PO SCH (09:27)
[2017-11-13] MEDS: pantoprazole 40 MG vial IV SCH (09:27)
[2017-11-13] MEDS: loratadine 10mg tablet PO SCH (09:27)
[2017-11-13] MEDS: levoTHYROXINE 75mcg tablet PO SCH (09:27)
[2017-11-13] MEDS: pregabalin 25mg capsule PO SCH ×2 (09:28→19:31)
[2017-11-13 11:00] VITALS: BP 153/57
[2017-11-13] MEDS ORDERED: magnesium citrate 296ml oral solution PO ONE (13:30)
[2017-11-13 15:00] VITALS: BP 119/53
[2017-11-13 19:00] VITALS: BP 129/57
[2017-11-13] MEDS: atorvastatin 20mg tablet PO SCH (19:30)
[2017-11-13] MEDS: rivaroxaban 20mg tablet PO SCH (19:30)
[2017-11-13] MEDS: ipratropium/albuterol 3ml nebule NEB SCH ×2 (19:46→23:05)
[2017-11-13] MEDS ORDERED: VANCOMYCIN 750MG IV in NS 250 ML IV SCH (20:00)
[2017-11-13] MEDS: insulin glargine (Lantus) pen - multi-dose SQ SCH (21:00)
[2017-11-13] MEDS: levoFLOXACIN-Levaquin 750MG/D5 150 ML IV SCH (21:58)
[2017-11-13 23:00] VITALS: BP 121/52
[2017-11-14 03:00] VITALS: BP 112/55
[2017-11-14] MEDS: ipratropium/albuterol 3ml nebule NEB SCH ×6 (03:48→23:43)
[2017-11-14 05:47] LABS: BASOPHILS % (AUTO) 0.4 % (0-1); EOSINOPHILS # (AUTO) 0.2 X10'3 (0-0.9); EOSINOPHILS % (AUTO) 2.7 % (0-6); HEMATOCRIT 38.8 % (35.0-45.0); HEMOGLOBIN 12.5 g/dl (12.0-16.0); LYMPHOCYTES # (AUTO) 1.7 X10'3 (1.1-4.8); LYMPHOCYTES % (AUTO) 19.7 % (21-51); MEAN CORPUSCULAR HEMOGLOBIN 26.6 PG (27.0-31.0); MEAN CORPUSCULAR HGB CONC 32.3 % (33.0-36.5); MEAN CORPUSCULAR VOLUME 82.5 FL (78-98); MEAN PLATELET VOLUME 10.6 FL (7.4-10.4); MONOCYTES # (AUTO) 1.1 X10'3 (0-0.9); MONOCYTES % (AUTO) 12.8 % (2-12); NEUTROPHILS # (AUTO) 5.5 X10'3 (1.8-7.7); NEUTROPHILS % (AUTO) 64.4 % (42-75); PLATELET COUNT 108 X10'3 (140-440); RED CELL DISTRIBUTION WIDTH 19.2 % (11.5-14.5); WHITE BLOOD COUNT 8.5 X10'3 (4.5-11.0)
[2017-11-14 06:00] VITALS: BP 122/54
[2017-11-14 06:04] LABS: ALANINE AMINOTRANSFERASE 19 U/L (12-78); ALBUMIN 2.6 G/DL (3.4-5.0); ALBUMIN/GLOBULIN RATIO 0.7 (1.1-1.5); ALKALINE PHOSPHATASE 55 IU/L (46-116); ANION GAP 4 (8-16); ASPARTATE AMINO TRANSFERASE 14 U/L (10-37); BILIRUBIN,TOTAL 0.5 MG/DL (0.1-1.0); BLOOD UREA NITROGEN 23 MG/DL (7-18); BUN/CREATININE RATIO 25.8 (6.6-38.0); CALCIUM 9.1 MG/DL (8.5-10.1); CHLORIDE 101 MMOL/L (99-107); CREATININE 0.89 MG/DL (0.40-0.90); GLUCOSE 86 MG/DL (70-104); POTASSIUM 3.8 MMOL/L (3.5-5.1); SODIUM 147 MMOL/L (135-145); TOTAL PROTEIN 6.5 G/DL (6.4-8.2); eGFR 62 ML/MIN
[2017-11-14 07:24] LABS: TOTAL CARBON DIOXIDE 42.3 MMOL/L (24-32)
[2017-11-14] MEDS: K and/or MAG REPLACEMENT MC SCH (08:00)
[2017-11-14] MEDS: potassium Cl oral solution 20 MEQ/15 ML PO SCH (09:06)
[2017-11-14] MEDS: lactobacillus rhamnosus 10,000 MMU CELLS/CAPSULE PO SCH ×2 (09:06→20:00)
[2017-11-14] MEDS: levoTHYROXINE 75mcg tablet PO SCH (09:06)
[2017-11-14] MEDS: loratadine 10mg tablet PO SCH (09:06)
[2017-11-14] MEDS: pantoprazole 40mg Tablet.DR PO SCH (09:07)
[2017-11-14] MEDS: furosemide 20MG tablet PO SCH ×2 (09:07→20:00)
[2017-11-14] MEDS: pregabalin 25mg capsule PO SCH ×2 (09:07→20:01)
[2017-11-14] MEDS: vitamin D (cholecalciferol) 1,000 unit tablet PO SCH (09:07)
[2017-11-14] MEDS: docusate sod 100mg capsule PO SCH ×2 (09:07→20:00)
[2017-11-14] MEDS: montelukast 10mg tablet PO SCH (09:08)
[2017-11-14] MEDS: predniSONE 20 mg tablet PO SCH (09:08)
[2017-11-14] MEDS: fluticasone nasal spray 16GM bottle NS SCH (09:08)
[2017-11-14] MEDS: polyvinyl alcohol ophthalmic drops 15ml bottle EACHEYE SCH ×3 (09:08→21:00)
[2017-11-14 11:00] VITALS: BP 143/62
[2017-11-14] MEDS: traMADol 50MG tablet PO PRN ×2 (12:02→20:01)
[2017-11-14] MEDS: benzocaine/menthol oral lozeng 1 EACH BOX MM PRN ×3 (13:59→22:09)
[2017-11-14 15:00] VITALS: BP 106/86
[2017-11-14 18:00] VITALS: BP 136/50
[2017-11-14] MEDS: insulin glargine (Lantus) pen - multi-dose SQ SCH (21:00)
[2017-11-14] MEDS: atorvastatin 10mg tablet PO SCH (21:50)
[2017-11-14] MEDS: rivaroxaban 20mg tablet PO SCH (21:50)
[2017-11-14] MEDS: levoFLOXACIN-Levaquin 750MG/D5 150 ML IV SCH (21:51)
[2017-11-14 22:00] VITALS: BP 125/51
[2017-11-15 02:00] VITALS: BP 120/58
[2017-11-15] MEDS: ipratropium/albuterol 3ml nebule NEB SCH ×6 (04:04→23:39)
[2017-11-15 06:00] VITALS: BP 136/60
[2017-11-15 07:27] LABS: BASOPHILS % (AUTO) 0 % (0-1); EOSINOPHILS # (AUTO) 0.2 X10'3 (0-0.9); EOSINOPHILS % (AUTO) 2.5 % (0-6); HEMATOCRIT 40.6 % (35.0-45.0); HEMOGLOBIN 13.3 g/dl (12.0-16.0); LYMPHOCYTES % (AUTO) 22.6 % (21-51); MEAN CORPUSCULAR HEMOGLOBIN 26.5 PG (27.0-31.0); MEAN CORPUSCULAR HGB CONC 32.8 % (33.0-36.5); MEAN CORPUSCULAR VOLUME 80.7 FL (78-98); MEAN PLATELET VOLUME 10.1 FL (7.4-10.4); MONOCYTES # (AUTO) 0.9 X10'3 (0-0.9); MONOCYTES % (AUTO) 10.9 % (2-12); NEUTROPHILS # (AUTO) 5.6 X10'3 (1.8-7.7); PLATELET COUNT 113 X10'3 (140-440); RED BLOOD COUNT 5.03 X10'6 (4.20-5.60); RED CELL DISTRIBUTION WIDTH 19.1 % (11.5-14.5); WHITE BLOOD COUNT 8.7 X10'3 (4.5-11.0)
[2017-11-15 07:47] LABS: ALBUMIN 2.9 G/DL (3.4-5.0); ANION GAP 5 (8-16); BLOOD UREA NITROGEN 28 MG/DL (7-18); BUN/CREATININE RATIO 25.2 (6.6-38.0); CALCIUM 8.9 MG/DL (8.5-10.1); CHLORIDE 99 MMOL/L (99-107); CREATININE 1.11 MG/DL (0.40-0.90); GLUCOSE 91 MG/DL (70-104); POTASSIUM 3.8 MMOL/L (3.5-5.1); SODIUM 144 MMOL/L (135-145); TOTAL CARBON DIOXIDE 39.7 MMOL/L (24-32); eGFR 48 ML/MIN
[2017-11-15] MEDS: K and/or MAG REPLACEMENT MC SCH (08:00)
[2017-11-15] MEDS: potassium Cl oral solution 20 MEQ/15 ML PO SCH (08:16)
[2017-11-15] MEDS: pantoprazole 40mg Tablet.DR PO SCH (08:18)
[2017-11-15] MEDS: loratadine 10mg tablet PO SCH (08:18)
[2017-11-15] MEDS: pregabalin 25mg capsule PO SCH ×2 (08:18→19:35)
[2017-11-15] MEDS: montelukast 10mg tablet PO SCH (08:18)
[2017-11-15] MEDS: docusate sod 100mg capsule PO SCH ×2 (08:18→19:35)
[2017-11-15] MEDS: predniSONE 20 mg tablet PO SCH (08:19)
[2017-11-15] MEDS: lactobacillus rhamnosus 10,000 MMU CELLS/CAPSULE PO SCH ×2 (08:19→19:35)
[2017-11-15] MEDS: levoTHYROXINE 75mcg tablet PO SCH (08:19)
[2017-11-15] MEDS: furosemide 20MG tablet PO SCH ×2 (08:20→19:35)
[2017-11-15] MEDS: vitamin D (cholecalciferol) 1,000 unit tablet PO SCH (08:20)
[2017-11-15] MEDS: fluticasone nasal spray 16GM bottle NS SCH (08:21)
[2017-11-15] MEDS: polyvinyl alcohol ophthalmic drops 15ml bottle EACHEYE SCH ×3 (08:21→19:35)
[2017-11-15] MEDS: traMADol 50MG tablet PO PRN ×2 (08:43→21:37)
[2017-11-15 11:00] VITALS: BP 128/53
[2017-11-15] MEDS ORDERED: diphenhydrAMINE 25mg capsule PO PRN (12:50)
[2017-11-15] MEDS: benzocaine/menthol oral lozeng 1 EACH BOX MM PRN ×2 (12:53→19:36)
[2017-11-15] MEDS ORDERED: levoFLOXACIN 750MG TABLET PO SCH (14:00)
[2017-11-15 15:00] VITALS: BP 112/66
[2017-11-15 19:00] VITALS: BP 130/63
[2017-11-15] MEDS: insulin glargine (Lantus) pen - multi-dose SQ SCH (21:00)
[2017-11-15] MEDS: atorvastatin 10mg tablet PO SCH (21:23)
[2017-11-15] MEDS: rivaroxaban 20mg tablet PO SCH (21:23)
[2017-11-15 23:00] VITALS: BP 124/60
[2017-11-16] MEDS: benzocaine/menthol oral lozeng 1 EACH BOX MM PRN ×3 (01:06→11:02)
[2017-11-16 03:00] VITALS: BP 104/55
[2017-11-16] MEDS: ipratropium/albuterol 3ml nebule NEB SCH ×3 (03:56→13:29)
[2017-11-16 07:00] VITALS: BP 117/54
[2017-11-16] MEDS: K and/or MAG REPLACEMENT MC SCH (08:00)
[2017-11-16] MEDS: pregabalin 25mg capsule PO SCH (08:05)
[2017-11-16] MEDS: lactobacillus rhamnosus 10,000 MMU CELLS/CAPSULE PO SCH (08:06)
[2017-11-16] MEDS: potassium Cl oral solution 20 MEQ/15 ML PO SCH (08:06)
[2017-11-16] MEDS: loratadine 10mg tablet PO SCH (08:07)
[2017-11-16] MEDS: vitamin D (cholecalciferol) 1,000 unit tablet PO SCH (08:07)
[2017-11-16] MEDS: predniSONE 20 mg tablet PO SCH (08:07)
[2017-11-16] MEDS: furosemide 20MG tablet PO SCH (08:08)
[2017-11-16] MEDS: pantoprazole 40mg Tablet.DR PO SCH (08:08)
[2017-11-16] MEDS: levoTHYROXINE 75mcg tablet PO SCH (08:09)
[2017-11-16] MEDS: montelukast 10mg tablet PO SCH (08:09)
[2017-11-16] MEDS: docusate sod 100mg capsule PO SCH (08:10)
[2017-11-16] MEDS: fluticasone nasal spray 16GM bottle NS SCH (08:18)
[2017-11-16] MEDS: polyvinyl alcohol ophthalmic drops 15ml bottle EACHEYE SCH (08:18)
[2017-11-16 11:00] VITALS: BP 132/106
[2017-11-16 12:00] VITALS: BP 144/48
[2017-11-17] MEDS ORDERED: pantoprazole 40mg Tablet.DR PO SCH (07:30)
[2017-11-17] MEDS ORDERED: levoFLOXACIN 750MG TABLET PO SCH (11:00)
== END 2017-11-16 14:23 | DRG 286 ==
LOC: ER 13:42 → ED HOLD 20:19 → EDBEDREQ 11-04 12:19 → PCU 3S 11-04 13:16 → ICU 2S 11-08 13:16 → PCU 3S 11-09 15:45
PROVIDERS: ADMIT Internal Medicine; ATTEND Family Medicine
PROC: 4A023N7 Measurement of Cardiac Sampling and Pressure, Left Heart, Percutaneous Approach (ICD-10-PCS; principal; 2017-11-08)
PROC: B2111ZZ Fluoroscopy of Multiple Coronary Arteries using Low Osmolar Contrast (ICD-10-PCS; 2017-11-08)
PROC: B2151ZZ Fluoroscopy of Left Heart using Low Osmolar Contrast (ICD-10-PCS; 2017-11-08)
DX: I11.0 Hypertensive heart disease with heart failure (principal); J96.01 Acute respiratory failure with hypoxia; J18.9 Pneumonia, unspecified organism; E11.42 Type 2 diabetes mellitus with diabetic polyneuropathy; I27.81 Cor pulmonale (chronic); J96.02 Acute respiratory failure with hypercapnia; I95.9 Hypotension, unspecified; E11.51 Type 2 diabetes mellitus with diabetic peripheral angiopathy without gangrene; E66.01 Morbid (severe) obesity due to excess calories; I48.0 Paroxysmal atrial fibrillation; J44.1 Chronic obstructive pulmonary disease with (acute) exacerbation; Z68.43 Body mass index [BMI] 50.0-59.9, adult; J44.0 Chronic obstructive pulmonary disease with (acute) lower respiratory infection; R00.1 Bradycardia, unspecified; I50.33 Acute on chronic diastolic (congestive) heart failure; R07.2 Precordial pain; E03.9 Hypothyroidism, unspecified; E78.00 Pure hypercholesterolemia, unspecified; F32.9 Major depressive disorder, single episode, unspecified; G47.33 Obstructive sleep apnea (adult) (pediatric); G89.29 Other chronic pain; M19.90 Unspecified osteoarthritis, unspecified site; M54.9 Dorsalgia, unspecified; I25.10 Atherosclerotic heart disease of native coronary artery without angina pectoris; I35.9 Nonrheumatic aortic valve disorder, unspecified; E78.5 Hyperlipidemia, unspecified; J20.9 Acute bronchitis, unspecified; K21.9 Gastro-esophageal reflux disease without esophagitis; Z60.2 Problems related to living alone; I25.2 Old myocardial infarction; Z88.6 Allergy status to analgesic agent; Z79.899 Other long term (current) drug therapy; Z90.49 Acquired absence of other specified parts of digestive tract; Z90.710 Acquired absence of both cervix and uterus; Z87.11 Personal history of peptic ulcer disease; Z87.442 Personal history of urinary calculi; Z82.5 Family history of asthma and other chronic lower respiratory diseases; Z80.9 Family history of malignant neoplasm, unspecified
CPT/HCPCS: 36415; 36600; 71045; 71275; 80048; 80053; 80202; 81003; 82550; 82803; 82948; 83036; 83605; 83735; 83880; 84145; 84443; 84484; 85018; 85025; 85610; 85730; 87040; 87070; 87077; 87186; 87205; 87502; 87503; 93005; 93306; 93458; 94640; 94660; 94668; 94760; 96360; 96361; 97110; 97116; 97162; 97530; 99285; A4620; A6251; A6257; A6449; C1769; C9113; J1644; J1650; J1815; J1956; J2001; J2405; J2930; J3370; J3475; J7030; J7512; Q9967

== ENCOUNTER → 2018-07-08 | Emergency (ER) | payer MEDICARE, MEDICAID ==
[~2018-07-08] VITALS: Ht 147.3 cm; Wt 161.8 kg
[~2018-07-08] MED LIST changes: -ACET-2119 PO; +BUPIVAcaine/PF 2.5 mg/ml (0.25%) 30ml vial IJ ONE; +BUPIVAcaine/PF 2.5mg/ml (0.25%) 10ml vial IJ ONE; +CEPH500C5 PO; +DEXT15DR25; +FLUT16SP2 BOTHNARES; +FLUT1AER; +MONT10TA24; +POTA20LI; +ROSU20TA30; -SIMV40TA4 PO; -SOTA80TA10 PO; +TETanus/Pertussis (Acell)/Diphther VAC/PF (Tdap-Adult) 0.5ml syringe IM ONE; +TRAM50TA2 PO; +acetaminophen 325mg tablet PO ONE; +traMADol 50MG tablet PO ONE
[2018-07-08 23:59] VITALS: BP 111/56
== END | disposition home or self-care (01) ==
LOC: ER 19:28
DX: S91.111A Laceration without foreign body of right great toe without damage to nail, initial encounter (principal); S00.03XA Contusion of scalp, initial encounter; S09.90XA Unspecified injury of head, initial encounter; N28.1 Cyst of kidney, acquired; M54.2 Cervicalgia; M54.9 Dorsalgia, unspecified; F17.200 Nicotine dependence, unspecified, uncomplicated; I48.91 Unspecified atrial fibrillation; I25.10 Atherosclerotic heart disease of native coronary artery without angina pectoris; I11.0 Hypertensive heart disease with heart failure; I50.9 Heart failure, unspecified; I25.2 Old myocardial infarction; J45.909 Unspecified asthma, uncomplicated; K21.9 Gastro-esophageal reflux disease without esophagitis; M19.90 Unspecified osteoarthritis, unspecified site; E11.42 Type 2 diabetes mellitus with diabetic polyneuropathy; G89.29 Other chronic pain; Z90.49 Acquired absence of other specified parts of digestive tract; Z90.710 Acquired absence of both cervix and uterus; Z98.890 Other specified postprocedural states; Z87.442 Personal history of urinary calculi; Z88.5 Allergy status to narcotic agent; Z79.899 Other long term (current) drug therapy; V00.811A Fall from moving wheelchair (powered), initial encounter; Y93.89 Activity, other specified; Y92.89 Other specified places as the place of occurrence of the external cause; Y99.9 Unspecified external cause status
CPT/HCPCS: 12001; 70450; 72125; 72128; 72131; 73630; 90471; 90715; 99284; J3490

== ENCOUNTER 2018-07-15 11:56 | Inpatient (IN) | payer MEDICARE, MEDICAID ==
[~2018-07-15] VITALS: Ht 147.3 cm; Wt 117.0 kg
[~2018-07-15 11:56] MED LIST changes: -BUPIVAcaine/PF 2.5 mg/ml (0.25%) 30ml vial IJ ONE; -BUPIVAcaine/PF 2.5mg/ml (0.25%) 10ml vial IJ ONE; -TETanus/Pertussis (Acell)/Diphther VAC/PF (Tdap-Adult) 0.5ml syringe IM ONE; -acetaminophen 325mg tablet PO ONE; -traMADol 50MG tablet PO ONE
[2018-07-15 13:09] LABS: BASOPHILS % (AUTO) 0.1 % (0-1); EOSINOPHILS # (AUTO) 0.2 X10'3 (0-0.9); EOSINOPHILS % (AUTO) 1.2 % (0-6); HEMATOCRIT 41.7 % (35.0-45.0); HEMOGLOBIN 13.3 g/dl (12.0-16.0); LYMPHOCYTES % (AUTO) 7.7 % (21-51); MEAN CORPUSCULAR VOLUME 84.4 FL (78-98); MEAN PLATELET VOLUME 9.4 FL (7.4-10.4); MONOCYTES % (AUTO) 7.5 % (2-12); NEUTROPHILS # (AUTO) 10.9 X10'3 (1.8-7.7); NEUTROPHILS % (AUTO) 83.5 % (42-75); PLATELET COUNT 153 X10'3 (140-440); RED BLOOD COUNT 4.94 X10'6 (4.20-5.60); RED CELL DISTRIBUTION WIDTH 19.3 % (11.5-14.5); WHITE BLOOD COUNT 13.1 X10'3 (4.5-11.0)
[2018-07-15 13:33] LABS: ANISOCYTOSIS 2+; LARGE PLATELETS FEW; PLATELET ESTIMATE NORMAL; TOTAL CELLS COUNTED 100
[2018-07-15] MEDS ORDERED: fentaNYL/PF 50MCG/1 ML 2ML syringe IV ONE ×2 (13:35→16:40)
[2018-07-15 14:21] LABS: INR 1.5 INR; PARTIAL THROMBOPLASTIN TIME 40 SECONDS (22-32); PROTHROMBIN TIME 14.7 SECONDS (9.0-12.0)
[2018-07-15 14:25] LABS: ALANINE AMINOTRANSFERASE 16 U/L (12-78); ALBUMIN 2.7 G/DL (3.4-5.0); ALBUMIN/GLOBULIN RATIO 0.7 (1.1-1.5); ALKALINE PHOSPHATASE 68 IU/L (46-116); ANION GAP 9 (8-16); ASPARTATE AMINO TRANSFERASE 15 U/L (10-37); BILIRUBIN,TOTAL 0.6 MG/DL (0.1-1.0); BLOOD UREA NITROGEN 21 MG/DL (7-18); BUN/CREATININE RATIO 15.3 (6.6-38.0); CALCIUM 9.2 MG/DL (8.5-10.1); CHLORIDE 103 MMOL/L (99-107); CREATININE 1.37 MG/DL (0.40-0.90); GLUCOSE 111 MG/DL (70-104); POTASSIUM 4.4 MMOL/L (3.5-5.1); SODIUM 142 MMOL/L (135-145); TOTAL CARBON DIOXIDE 30.5 MMOL/L (24-32); TOTAL PROTEIN 6.5 G/DL (6.4-8.2); eGFR 37 ML/MIN
[2018-07-15 14:26] LABS: OCCULT BLOOD STOOL POSITIVE (Neg)
[2018-07-15] MEDS ORDERED: metroNIDAZOLE-Flagyl 500mg/NS 100 ML IV ONE (15:50)
[2018-07-15] MEDS ORDERED: levoFLOXACIN-Levaquin 750MG/D5 150 ML IV ONE (15:50)
[2018-07-15] MEDS ORDERED: magnesium 4gm in 100ml NS 100 ML IV PRN (16:35)
[2018-07-15] MEDS ORDERED: magnesium Cl slow-release 64mg tablet PO PRN (16:35)
[2018-07-15] MEDS ORDERED: magnesium 1gm/100ml D5W IVPB 100 ML IV PRN (16:35)
[2018-07-15] MEDS ORDERED: potassium Cl 20 mEq SR tablet PO PRN ×2 (16:35)
[2018-07-15] MEDS ORDERED: potassium Cl 40MEQ/NS 500ml 500 ML IV PRN ×2 (16:35)
[2018-07-15] MEDS ORDERED: ondansetron/PF 4mg/2ml inj IV PRN (16:35)
[2018-07-15] MEDS: normal saline 1000ml 1,000 ML IV SCH (17:28)
[2018-07-15 18:55] VITALS: BP 109/48
[2018-07-15 20:44] LABS: HEMOGLOBIN A1C 6.5 % (4.5-6.2)
[2018-07-16] VITALS: BP 100/50
[2018-07-16] MEDS: normal saline 1000ml 1,000 ML IV SCH ×3 (04:00→14:54)
[2018-07-16 05:48] LABS: BASOPHILS % (AUTO) 0.2 % (0-1); EOSINOPHILS # (AUTO) 0.1 X10'3 (0-0.9); EOSINOPHILS % (AUTO) 1.4 % (0-6); HEMATOCRIT 35.5 % (35.0-45.0); HEMOGLOBIN 11.4 g/dl (12.0-16.0); LYMPHOCYTES # (AUTO) 1.4 X10'3 (1.1-4.8); LYMPHOCYTES % (AUTO) 13.8 % (21-51); MEAN CORPUSCULAR HEMOGLOBIN 27.4 PG (27.0-31.0); MEAN CORPUSCULAR HGB CONC 32.1 % (33.0-36.5); MEAN CORPUSCULAR VOLUME 85.3 FL (78-98); MEAN PLATELET VOLUME 9.9 FL (7.4-10.4); MONOCYTES # (AUTO) 1.1 X10'3 (0-0.9); MONOCYTES % (AUTO) 11.1 % (2-12); NEUTROPHILS # (AUTO) 7.3 X10'3 (1.8-7.7); NEUTROPHILS % (AUTO) 73.5 % (42-75); PLATELET COUNT 133 X10'3 (140-440); RED BLOOD COUNT 4.17 X10'6 (4.20-5.60); RED CELL DISTRIBUTION WIDTH 19.8 % (11.5-14.5); WHITE BLOOD COUNT 9.9 X10'3 (4.5-11.0)
[2018-07-16 05:56] LABS: ALBUMIN 2.3 G/DL (3.4-5.0); ANION GAP 8 (8-16); BLOOD UREA NITROGEN 19 MG/DL (7-18); BUN/CREATININE RATIO 15.4 (6.6-38.0); CALCIUM 8.4 MG/DL (8.5-10.1); CHLORIDE 106 MMOL/L (99-107); CREATININE 1.23 MG/DL (0.40-0.90); GLUCOSE 86 MG/DL (70-104); MAGNESIUM 1.7 MG/DL (1.5-2.4); POTASSIUM 3.9 MMOL/L (3.5-5.1); SODIUM 142 MMOL/L (135-145); TOTAL CARBON DIOXIDE 28.5 MMOL/L (24-32); eGFR 42 ML/MIN
[2018-07-16 07:09] VITALS: BP 106/52
[2018-07-16 07:26] LABS: ANISOCYTOSIS 2+; PLATELET ESTIMATE DECREASED
[2018-07-16] MEDS: K and/or MAG REPLACEMENT MC SCH (08:00)
[2018-07-16 12:15] VITALS: BP 114/60
[2018-07-16] MEDS: lisinopril 5mg tablet PO SCH (12:37)
[2018-07-16] MEDS: loratadine 10mg tablet PO SCH (12:37)
[2018-07-16] MEDS: levoTHYROXINE 75mcg tablet PO SCH (12:38)
[2018-07-16] MEDS ORDERED: PEG 3350/Na sulf,bicarb,Cl/KCl oral sol 4 liter bottle PO ONE (14:45)
[2018-07-16] MEDS ORDERED: acetaminophen 325mg tablet PO PRN (17:55)
[2018-07-16 20:00] VITALS: BP 95/95
[2018-07-16] MEDS ORDERED: atorvastatin 20mg tablet PO SCH (21:00)
[2018-07-16] MEDS: budesonide 0.5mg/2ml UD nebule IH SCH (21:29)
[2018-07-16] MEDS: albuterol 2.5 MG/3 ML nebule NEB SCH (21:30)
[2018-07-16 22:00] VITALS: BP 113/45
[2018-07-16] MEDS: potassium Cl oral solution 20 MEQ/15 ML PO SCH (22:46)
[2018-07-16] MEDS: furosemide 20MG tablet PO SCH (22:47)
[2018-07-16] MEDS: pregabalin 25mg capsule PO SCH (22:47)
[2018-07-17] VITALS (8 sets, daily range): BP systolic 99–142; BP diastolic 45–77
[2018-07-17] MEDS: normal saline 1000ml 1,000 ML IV SCH (01:43)
[2018-07-17] MEDS: albuterol 2.5 MG/3 ML nebule NEB SCH ×4 (02:00→14:00)
[2018-07-17 05:35] LABS: BASOPHILS % (AUTO) 0.3 % (0-1); EOSINOPHILS # (AUTO) 0.1 X10'3 (0-0.9); EOSINOPHILS % (AUTO) 0.9 % (0-6); HEMATOCRIT 34.5 % (35.0-45.0); HEMOGLOBIN 11.2 g/dl (12.0-16.0); LYMPHOCYTES # (AUTO) 1.1 X10'3 (1.1-4.8); LYMPHOCYTES % (AUTO) 13.5 % (21-51); MEAN CORPUSCULAR HEMOGLOBIN 27.3 PG (27.0-31.0); MEAN CORPUSCULAR HGB CONC 32.3 % (33.0-36.5); MEAN CORPUSCULAR VOLUME 84.4 FL (78-98); MONOCYTES # (AUTO) 0.7 X10'3 (0-0.9); MONOCYTES % (AUTO) 8.6 % (2-12); NEUTROPHILS # (AUTO) 6.4 X10'3 (1.8-7.7); NEUTROPHILS % (AUTO) 76.7 % (42-75); PLATELET COUNT 130 X10'3 (140-440); RED BLOOD COUNT 4.09 X10'6 (4.20-5.60); RED CELL DISTRIBUTION WIDTH 19.6 % (11.5-14.5); WHITE BLOOD COUNT 8.4 X10'3 (4.5-11.0)
[2018-07-17 06:34] LABS: ALBUMIN 2.2 G/DL (3.4-5.0); ANION GAP 10 (8-16); BLOOD UREA NITROGEN 13 MG/DL (7-18); BUN/CREATININE RATIO 13.1 (6.6-38.0); CALCIUM 8.1 MG/DL (8.5-10.1); CHLORIDE 108 MMOL/L (99-107); CREATININE 0.99 MG/DL (0.40-0.90); GLUCOSE 104 MG/DL (70-104); MAGNESIUM 1.5 MG/DL (1.5-2.4); POTASSIUM 3.3 MMOL/L (3.5-5.1); SODIUM 147 MMOL/L (135-145); eGFR 54 ML/MIN
[2018-07-17 07:09] LABS: ANISOCYTOSIS 2+; PLATELET ESTIMATE DECREASED; POLYCHROMASIA 1+; ROULEAUX 1+
[2018-07-17] MEDS: budesonide 0.5mg/2ml UD nebule IH SCH (07:40)
[2018-07-17] MEDS: loratadine 10mg tablet PO SCH (07:41)
[2018-07-17] MEDS: furosemide 20MG tablet PO SCH (07:43)
[2018-07-17] MEDS: pregabalin 25mg capsule PO SCH (07:44)
[2018-07-17] MEDS: potassium Cl oral solution 20 MEQ/15 ML PO SCH (07:45)
[2018-07-17] MEDS: levoTHYROXINE 75mcg tablet PO SCH (07:46)
[2018-07-17] MEDS: lisinopril 5mg tablet PO SCH (07:46)
[2018-07-17] MEDS: K and/or MAG REPLACEMENT MC SCH (07:52)
[2018-07-17] MEDS ORDERED: fluticasone nasal spray 16GM bottle NS SCH (08:00)
[2018-07-17] MEDS ORDERED: montelukast 10mg tablet PO SCH (08:00)
[2018-07-17] MEDS ORDERED: vitamin D (cholecalciferol) 1,000 unit tablet PO SCH (08:00)
[2018-07-17] MEDS ORDERED: pantoprazole 40mg Tablet.DR PO SCH (08:00)
[2018-07-17] MEDS ORDERED: MIDAZolam 5mg/5ml vial ONE (09:13)
[2018-07-17] MEDS ORDERED: fentaNYL/PF 50MCG/1 ML 2ML syringe ONE (09:13)
[2018-07-17] MEDS ORDERED: LEVO500T89 PO (13:38)
[2018-07-17] MEDS ORDERED: FURO-150 PO (13:38)
[2018-07-17] MEDS ORDERED: POTA20LI PO (13:38)
[2018-07-17] MEDS ORDERED: METR500T4 PO (13:38)
[2018-07-17] MEDS ORDERED: potassium Cl oral solution 20 MEQ/15 ML PO ONE (15:15)
[2018-07-17] MEDS ORDERED: metroNIDAZOLE 500mg tablet PO SCH (20:00)
[2018-07-18] MEDS ORDERED: levoFLOXACIN 500mg tablet PO SCH (11:00)
== END 2018-07-17 16:48 | disposition home or self-care (01) | DRG 393 ==
LOC: ER 11:56 → ED HOLD 16:33 → SUR 3N 18:35
PROVIDERS: ADMIT Internal Medicine; ATTEND Internal Medicine
PROC: 0DBM8ZX Excision of Descending Colon, Via Natural or Artificial Opening Endoscopic, Diagnostic (ICD-10-PCS; principal; 2018-07-17)
DX: K55.9 Vascular disorder of intestine, unspecified (principal); N17.0 Acute kidney failure with tubular necrosis; Z68.43 Body mass index [BMI] 50.0-59.9, adult; I50.30 Unspecified diastolic (congestive) heart failure; E03.9 Hypothyroidism, unspecified; E11.42 Type 2 diabetes mellitus with diabetic polyneuropathy; E66.01 Morbid (severe) obesity due to excess calories; E78.00 Pure hypercholesterolemia, unspecified; E78.5 Hyperlipidemia, unspecified; E86.9 Volume depletion, unspecified; T50.2X5A Adverse effect of carbonic-anhydrase inhibitors, benzothiadiazides and other diuretics, initial encounter; E87.6 Hypokalemia; I11.0 Hypertensive heart disease with heart failure; I25.10 Atherosclerotic heart disease of native coronary artery without angina pectoris; I48.2 Chronic atrial fibrillation; F32.9 Major depressive disorder, single episode, unspecified; J45.909 Unspecified asthma, uncomplicated; G89.29 Other chronic pain; M19.90 Unspecified osteoarthritis, unspecified site; M54.9 Dorsalgia, unspecified; Z60.2 Problems related to living alone; K21.9 Gastro-esophageal reflux disease without esophagitis; I25.2 Old myocardial infarction; Z90.710 Acquired absence of both cervix and uterus; Z90.49 Acquired absence of other specified parts of digestive tract; Z88.6 Allergy status to analgesic agent; Z88.8 Allergy status to other drugs, medicaments and biological substances; Z79.890 Hormone replacement therapy; Z79.899 Other long term (current) drug therapy; Z79.01 Long term (current) use of anticoagulants; Z86.010 Personal history of colon polyps; Z87.11 Personal history of peptic ulcer disease; Z87.442 Personal history of urinary calculi; Z82.49 Family history of ischemic heart disease and other diseases of the circulatory system; Z82.5 Family history of asthma and other chronic lower respiratory diseases; Z80.9 Family history of malignant neoplasm, unspecified; Y92.89 Other specified places as the place of occurrence of the external cause
CPT/HCPCS: 36415; 45380; 71045; 73610; 74176; 80048; 80053; 82272; 82948; 83036; 83735; 85025; 85610; 85730; 86885; 86900; 86901; 87070; 88305; 93005; 94640; 94760; 96365; 96368; 96375; 97116; 97162; 97530; 99152; 99285; A4620; G0378; J1956; J2250; J3010; J3490; J7030; J7626

== ENCOUNTER 2018-10-10 07:29 | Inpatient (IN) | payer MEDICARE, MEDICAID | END 2018-10-13 14:15 | LOC: ER 07:29 → ED HOLD 10:59 → SUR 3N 13:00 | DX: J44.1 Chronic obstructive pulmonary disease with (acute) exacerbation (principal); J18.9 Pneumonia, unspecified organism; I50.30 Unspecified diastolic (congestive) heart failure; E78.5 Hyperlipidemia, unspecified; K21.9 Gastro-esophageal reflux disease without esophagitis; E03.9 Hypothyroidism, unspecified; I11.0 Hypertensive heart disease with heart failure ==

== ENCOUNTER 2019-05-19 14:06 | Outpatient (CLI) | payer MEDICARE, MEDICAID ==
[~2019-05-19 14:06] MED LIST changes: +BARIUM SULFATE 340 ML SUSP.RECON***PROCEDURE AREA ONLY**DONT ENTER PO ONE; -CEPH500C5 PO; +LEVO25TA7 PO; -LEVO75TA57 PO; +LIDO30CR23 TP; -MULT-360; -POTA20LI; +POTA20LI5 PO; +PRED10TA PO; -ROSU20TA30; +ROSU20TA31; -TRAM50TA2 PO; +[UNRECOGNIZED DRUG - CODE]
[2019-06-04] MEDS ORDERED: ACET-2615 PO (12:45)
[2019-06-04] MEDS ORDERED: FURO80TA87 PO (12:45)
[2019-06-04] MEDS ORDERED: LEVO75TA PO (12:45)
[2019-06-04] MEDS ORDERED: LACT1CAP65 PO (12:45)
[2019-06-04] MEDS ORDERED: MOME17SP BOTHNARES (12:45)
== END 2019-05-19 23:59 | disposition home or self-care (01) ==
LOC: RAD 14:06
PROVIDERS: ATTEND Otolaryngology
DX: K44.9 Diaphragmatic hernia without obstruction or gangrene (principal); K21.9 Gastro-esophageal reflux disease without esophagitis; R13.14 Dysphagia, pharyngoesophageal phase; I10 Essential (primary) hypertension; J44.9 Chronic obstructive pulmonary disease, unspecified; E11.9 Type 2 diabetes mellitus without complications; Z79.899 Other long term (current) drug therapy
CPT/HCPCS: 74220; 74230

== ENCOUNTER 2019-06-02 11:29 | Emergency (ER) | payer MEDICARE, MEDICAID ==
[~2019-06-02] VITALS: Ht 144.8 cm; Wt 115.7 kg
[~2019-06-02 11:29] MED LIST changes: -BARIUM SULFATE 340 ML SUSP.RECON***PROCEDURE AREA ONLY**DONT ENTER PO ONE
[2019-06-02] MEDS ORDERED: traMADol 50MG tablet PO ONE (11:40)
--- NOTE | 2019-06-02 12:07 | NUR ---
TO CT SCAN VIA [facility]
--- NOTE | 2019-06-02 12:45 | NUR ---
TRAUMA LEVEL CALLED OFF AT [phone]
[2019-06-02 14:07] VITALS: BP 124/48
--- NOTE | 2019-06-02 14:33 | NUR ---
PT VOIDED 200CC CLEAR YELLOW URINE VIA BEDPAN
[2019-06-04] MEDS ORDERED: LACT1CAP65 PO (12:45)
[2019-06-04] MEDS ORDERED: LEVO75TA PO (12:45)
[2019-06-04] MEDS ORDERED: MOME17SP BOTHNARES (12:45)
[2019-06-04] MEDS ORDERED: FURO80TA87 PO (12:45)
[2019-06-04] MEDS ORDERED: ACET-2615 PO (12:45)
== END 2019-06-02 14:36 | disposition home or self-care (01) ==
LOC: ER 11:29
DX: S16.1XXA Strain of muscle, fascia and tendon at neck level, initial encounter (principal); S40.011A Contusion of right shoulder, initial encounter; S09.8XXA Other specified injuries of head, initial encounter; I48.91 Unspecified atrial fibrillation; I25.10 Atherosclerotic heart disease of native coronary artery without angina pectoris; I11.0 Hypertensive heart disease with heart failure; I50.9 Heart failure, unspecified; E78.00 Pure hypercholesterolemia, unspecified; I25.2 Old myocardial infarction; I38 Endocarditis, valve unspecified; J45.909 Unspecified asthma, uncomplicated; K21.9 Gastro-esophageal reflux disease without esophagitis; E11.9 Type 2 diabetes mellitus without complications; E07.9 Disorder of thyroid, unspecified; M19.90 Unspecified osteoarthritis, unspecified site; G89.29 Other chronic pain; F32.9 Major depressive disorder, single episode, unspecified; Z90.49 Acquired absence of other specified parts of digestive tract; Z87.11 Personal history of peptic ulcer disease; Z87.442 Personal history of urinary calculi; Z90.710 Acquired absence of both cervix and uterus; Z98.890 Other specified postprocedural states; Z88.5 Allergy status to narcotic agent; Z88.6 Allergy status to analgesic agent; Z79.899 Other long term (current) drug therapy; W22.8XXA Striking against or struck by other objects, initial encounter; Y93.89 Activity, other specified; Y92.89 Other specified places as the place of occurrence of the external cause; Y99.8 Other external cause status
CPT/HCPCS: 70450; 72125; 73030; 73560; 99284

== ENCOUNTER 2019-06-10 09:08 | Day surgery (SDC) | payer MEDICARE, MEDICAID ==
[2019-06-04 12:20] LABS: BASOPHILS % (AUTO) 0.7 % (0-1); EOSINOPHILS # (AUTO) 0.1 X10'3 (0-0.9); EOSINOPHILS % (AUTO) 1.2 % (0-6); LYMPHOCYTES # (AUTO) 1.6 X10'3 (1.1-4.8); LYMPHOCYTES % (AUTO) 22.8 % (21-51); MEAN CORPUSCULAR HEMOGLOBIN 25.6 PG (27.0-31.0); MEAN CORPUSCULAR HGB CONC 32.3 g/dL (33.0-36.5); MEAN CORPUSCULAR VOLUME 79.2 FL (78-98); MEAN PLATELET VOLUME 8.9 FL (7.4-10.4); MONOCYTES # (AUTO) 0.7 X10'3 (0-0.9); MONOCYTES % (AUTO) 9.6 % (2-12); NEUTROPHILS # (AUTO) 4.7 X10'3 (1.8-7.7); NEUTROPHILS % (AUTO) 65.7 % (42-75); PRE OP HEMOGLOBIN 13.9 g/dL (12.0-16.0); PRE OP PLATELET COUNT 144 X10'3 (140-440); RED BLOOD COUNT 5.43 X10'6 (4.20-5.60); RED CELL DISTRIBUTION WIDTH 20.7 % (11.5-14.5)
[2019-06-04 12:33] LABS: PRE OP INR 1.4 INR
[2019-06-04 12:42] LABS: ALBUMIN 3.7 G/DL (3.4-5.0); ALKALINE PHOSPHATASE 94 IU/L (46-116); BLOOD UREA NITROGEN 19 MG/DL (7-18); CALCIUM 9.1 MG/DL (8.5-10.1); CHLORIDE 104 MMOL/L (99-107); PRE OP ALT 19 U/L (30-65); PRE OP ANION GAP 13 (8-16); PRE OP AST 13 U/L (10-37); PRE OP BILIRUB, TOTAL 0.6 MG/DL (0.0-1.0); PRE OP GLUCOSE 128 MG/DL (70-104); PRE OP POTASSIUM 3.9 MMOL/L (3.4-5.1); PRE OP SODIUM 143 MMOL/L (135-145); TOTAL CARBON DIOXIDE 26.5 MMOL/L (24-32); TOTAL PROTEIN 7.4 G/DL (6.4-8.2); eGFR 54 ML/MIN
[2019-06-04 14:51] LABS: ANISOCYTOSIS 2+; ELLIPTOCYTES FEW; HYPOCHROMASIA 1+; MICROCYTOSIS 1+; PLATELET ESTIMATE NORMAL; POLYCHROMASIA 1+
[2019-06-10] VITALS (10 sets, daily range): BP systolic 123–157; BP diastolic 69–97
[~2019-06-10] VITALS: Ht 144.8 cm; Wt 110.0 kg
[~2019-06-10 09:08] MED LIST changes: +ACET-2615 PO; -CHOL10002 PO; -FURO-150 PO; +FURO80TA87 PO; +LACT1CAP65 PO; -LEVO25TA7 PO; +LEVO75TA PO; -LIDO30CR23 TP; -LISI-604 PO; +MOME17SP BOTHNARES; -PANT40SU2 PO; -PRED10TA PO; +albuterol 2.5 MG/3 ML nebule NEB ONE; +cefazolin/dext.iso 2gm/50ml 50 ML IV ONE; +famotidine 20mg tablet PO ONE; +ringers solution, lacted 1,000 ML IV SCH
[2019-06-10] MEDS ORDERED: TRAM50TA2 PO (09:58)
[2019-06-10] MEDS ORDERED: BUPIVAcaine/PF 2.5 mg/ml (0.25%) 30ml vial ONE (10:02)
[2019-06-10 10:18] LABS: PRE OP PROTIME 10.4 SECONDS (9.0-12.0)
[2019-06-10] MEDS ORDERED: ondansetron/PF 4mg/2ml inj ONE (10:39)
[2019-06-10] MEDS ORDERED: sevoflurane 250ml liquid IH ONE (10:39)
[2019-06-10] MEDS ORDERED: fentaNYL/PF 50MCG/1 ML 2ML syringe ONE (10:43)
[2019-06-10] MEDS ORDERED: midazolam 2 mg/2 ml injection ONE (10:43)
[2019-06-10] MEDS ORDERED: propofol inj 20 ML IV ONE (10:46)
[2019-06-10] MEDS ORDERED: dexamethasone sod phosphate 4mg/ml inj. ONE (10:54)
[2019-06-10] MEDS ORDERED: ringers solution, lacted 1,000 ML IV SCH (11:27)
[2019-06-10] MEDS ORDERED: ondansetron/PF 4mg/2ml inj IV PRN (11:30)
[2019-06-10] MEDS ORDERED: HYDROmorphone inj. 0.5 MG/0.5 ML DISP.SYRIN IV PRN ×2 (11:30)
[2019-06-10] MEDS ORDERED: acetaminophen 1,000mg/100ml IV 100 ML IV PRN (11:30)
--- NOTE | 2019-06-10 12:57 | NUR ---
Received from OR via , accompanied by Anesthesiologist DR ALONZO and report given by Anesthesiolgist. AWAKENS TO VOICE. VITALS STABLE. DRESSING WITH SM SPOT OF BLOOD,MD IS AWARE. REINFORCED WITH VALENTÍN WRAP. JEANIE PAIN.
[2019-06-10] MEDS ORDERED: HYDROmorphone 1 mg/ml syringe ONE (13:21)
--- NOTE | 2019-06-10 14:37 | NUR ---
AWAKE AND ORIENTED. VITALS STABLE. DRESSING DI. STATES PAIN IMPROVING. HOME WITH HER STUDENT LIFE ADVISOR AT THIS TIME.
== END 2019-06-10 14:37 | disposition home or self-care (01) ==
LOC: PAS 09:08
PROVIDERS: ATTEND Orthopaedic Surgery
DX: M19.041 Primary osteoarthritis, right hand (principal); J45.909 Unspecified asthma, uncomplicated; I50.9 Heart failure, unspecified; E03.9 Hypothyroidism, unspecified; I48.91 Unspecified atrial fibrillation; E66.9 Obesity, unspecified; Z68.43 Body mass index [BMI] 50.0-59.9, adult; Z79.01 Long term (current) use of anticoagulants; Z79.899 Other long term (current) drug therapy; Z96.653 Presence of artificial knee joint, bilateral; Z90.49 Acquired absence of other specified parts of digestive tract; Z98.890 Other specified postprocedural states; Z90.710 Acquired absence of both cervix and uterus; Z86.14 Personal history of Methicillin resistant Staphylococcus aureus infection; Z88.5 Allergy status to narcotic agent; Z88.8 Allergy status to other drugs, medicaments and biological substances
CPT/HCPCS: 26860; 26861; 36415; 80053; 82948; 85025; 85610; 85730; 94640; A6223; C1713; J0131; J1100; J1170; J2250; J2405; J2704; J3010; J3490; A4215; A4618; A6449; A6455; A7000; J7120

== ENCOUNTER 2020-05-18 20:34 | Emergency (ER) | payer MEDICARE, MEDICAID ==
[~2020-05-18] VITALS: Ht 167.6 cm; Wt 116.0 kg
[~2020-05-18 20:34] MED LIST changes: -MOME17SP BOTHNARES; -MONT10TA24; +MONT10TA26; +TRAM50TA2 PO; -albuterol 2.5 MG/3 ML nebule NEB ONE; -cefazolin/dext.iso 2gm/50ml 50 ML IV ONE; -famotidine 20mg tablet PO ONE; -ringers solution, lacted 1,000 ML IV SCH
[2020-05-18 21:09] LABS: BASOPHILS % (AUTO) 0.7 % (0-1); EOSINOPHILS # (AUTO) 0.1 X10'3 (0-0.9); EOSINOPHILS % (AUTO) 1.4 % (0-6); HEMATOCRIT 47.4 % (35.0-45.0); HEMOGLOBIN 15.8 g/dl (12.0-16.0); LYMPHOCYTES # (AUTO) 2.1 X10'3 (1.1-4.8); LYMPHOCYTES % (AUTO) 32.5 % (21-51); MEAN CORPUSCULAR HEMOGLOBIN 30.6 PG (27.0-31.0); MEAN CORPUSCULAR HGB CONC 33.2 g/dL (33.0-36.5); MEAN CORPUSCULAR VOLUME 92.2 FL (78-98); MEAN PLATELET VOLUME 8.8 FL (7.4-10.4); MONOCYTES # (AUTO) 0.6 X10'3 (0-0.9); MONOCYTES % (AUTO) 8.8 % (2-12); NEUTROPHILS # (AUTO) 3.6 X10'3 (1.8-7.7); NEUTROPHILS % (AUTO) 56.6 % (42-75); PLATELET COUNT 118 X10'3 (140-440); RED BLOOD COUNT 5.14 X10'6 (4.20-5.60); RED CELL DISTRIBUTION WIDTH 15.8 % (11.5-14.5); WHITE BLOOD COUNT 6.4 X10'3 (4.5-11.0)
[2020-05-18 21:26] LABS: ALANINE AMINOTRANSFERASE 16 U/L (12-78); ALBUMIN 3.3 G/DL (3.4-5.0); ALBUMIN/GLOBULIN RATIO 0.9 (1.1-1.5); ALKALINE PHOSPHATASE 60 IU/L (46-116); ANION GAP 7 (8-16); ASPARTATE AMINO TRANSFERASE 20 U/L (10-37); BILIRUBIN,TOTAL 0.7 MG/DL (0.1-1.0); BLOOD UREA NITROGEN 27 MG/DL (7-18); BUN/CREATININE RATIO 25.2 (6.6-38.0); CALCIUM 8.8 MG/DL (8.5-10.1); CHLORIDE 106 MMOL/L (99-107); CREATININE 1.07 MG/DL (0.40-0.90); GLUCOSE 104 MG/DL (70-104); SODIUM 144 MMOL/L (135-145); TOTAL CARBON DIOXIDE 31.3 MMOL/L (24-32); TOTAL PROTEIN 6.8 G/DL (6.4-8.2); eGFR 49 ML/MIN
[2020-05-18 21:33] LABS: CLARITY,URINE CLEAR (Clear); COLOR,URINE YELLOW (Yellow); GLUCOSE, URINE NEGATIVE (Neg); KETONES,URINE NEGATIVE (Neg); LEUKOCYTE ESTERASE ,URINE SMALL (Neg); NITRITES, URINE NEGATIVE (Neg); OCCULT BLOOD,URINE SMALL (Neg); PROTEIN,URINE NEGATIVE (Neg); UROBILINOGEN,URINE 0.2 E.U/dL (0.2-1.0)
[2020-05-18 21:36] LABS: UA COLLECTION TYPE STRAIGHT CATH
[2020-05-18 21:38] LABS: BACTERIA,URINE 2+ /HPF (Neg); RBC,URINE 0-2 /HPF (0-2); SQUAMOUS EPITHELIAL CELL,UR FEW /LPF (FEW); WBC,URINE 0-4 /HPF (0-4)
[2020-05-18] MEDS ORDERED: PANT40TA54 PO (21:38)
[2020-05-18] MEDS ORDERED: ACET-3447 (21:40)
[2020-05-18] MEDS ORDERED: ALEN70TA60 PO (21:44)
[2020-05-18] MEDS ORDERED: OXYB5TAB16 PO (21:44)
[2020-05-18] MEDS ORDERED: SIMV-42 PO (21:45)
[2020-05-19 00:44] VITALS: BP 120/51
== END 2020-05-19 00:45 | disposition home or self-care (01) ==
LOC: ER 20:34
DX: R41.82 Altered mental status, unspecified (principal); R51 Headache; R11.0 Nausea; R10.9 Unspecified abdominal pain; E11.42 Type 2 diabetes mellitus with diabetic polyneuropathy; I48.91 Unspecified atrial fibrillation; I25.10 Atherosclerotic heart disease of native coronary artery without angina pectoris; I50.9 Heart failure, unspecified; E78.00 Pure hypercholesterolemia, unspecified; I11.0 Hypertensive heart disease with heart failure; I25.2 Old myocardial infarction; J45.909 Unspecified asthma, uncomplicated; K21.9 Gastro-esophageal reflux disease without esophagitis; E03.9 Hypothyroidism, unspecified; M19.90 Unspecified osteoarthritis, unspecified site; G89.29 Other chronic pain; F32.9 Major depressive disorder, single episode, unspecified; Z90.49 Acquired absence of other specified parts of digestive tract; Z90.710 Acquired absence of both cervix and uterus; Z98.890 Other specified postprocedural states; Z88.5 Allergy status to narcotic agent; Z88.8 Allergy status to other drugs, medicaments and biological substances; Z79.01 Long term (current) use of anticoagulants; Z79.899 Other long term (current) drug therapy
CPT/HCPCS: 36415; 70450; 71045; 74176; 80053; 81001; 83605; 84145; 85025; 87040; 99285

== ENCOUNTER 2021-07-18 09:19 | Outpatient (CLI) | payer MEDICARE, MEDICAID ==
[~2021-07-18] VITALS: Ht 149.9 cm; Wt 111.9 kg
[~2021-07-18 09:19] MED LIST changes: -ACET-2615 PO; +ALEN70TA60 PO; -DEXT15DR25; -FLUT16SP2 BOTHNARES; -FLUT1AER; -LACT1CAP65 PO; -LORA10TA7 PO; -MONT10TA26; -POTA20LI5 PO; -PREG100C PO; +PREG50CA PO; -[UNRECOGNIZED DRUG - CODE]
[2021-07-18] MEDS ORDERED: regadenoson 0.4mg/5ml syringe IV ONE (09:50)
[2021-07-18 11:05] VITALS: BP 131/71
[2021-07-18 11:16] VITALS: BP 138/70
[2021-07-18 11:17] VITALS: BP 139/68
[2021-07-18 11:18] VITALS: BP_SYST 114; BP_SYST 116; BP_DIAS 51; BP_DIAS 58
[2021-07-18 11:19] VITALS: BP 106/54
[2021-08-02] MEDS ORDERED: LORA10TA7 PO (04:46)
[2021-08-02] MEDS ORDERED: KETO5DRO11 EACHEYE (04:46)
[2021-08-02] MEDS ORDERED: PANT20TA2 PO (04:46)
[2021-08-02] MEDS ORDERED: POTA-188 PO (04:46)
[2021-08-02] MEDS ORDERED: MULT-1085 PO (04:46)
[2021-08-02] MEDS ORDERED: FURO-150 PO (04:46)
[2021-08-02] MEDS ORDERED: ACET-1008 PO (04:46)
[2021-08-02] MEDS ORDERED: AZEL137S4 BOTHNARES (04:46)
[2021-08-02] MEDS ORDERED: OMEG1CAP61 PO (04:46)
[2021-08-02] MEDS ORDERED: DEXT15DR27 EACHEYE (04:46)
[2021-08-02] MEDS ORDERED: CHOL20002 PO (04:47)
[2021-08-03] MEDS ORDERED: CEFD300C3 PO (13:15)
[2021-08-03] MEDS ORDERED: LACT1CAP26 PO (13:15)
== END 2021-07-18 23:59 | disposition home or self-care (01) ==
LOC: RAD 09:19
PROVIDERS: ATTEND Internal Medicine Cardiovascular Disease
DX: I25.10 Atherosclerotic heart disease of native coronary artery without angina pectoris (principal)
CPT/HCPCS: 78452; 93017; A9500; J2785

== ENCOUNTER 2021-10-31 09:52 | Emergency (ER) | payer MEDICARE, MEDICAID ==
[~2021-10-31] VITALS: Ht 144.8 cm; Wt 112.7 kg
[~2021-10-31 09:52] MED LIST changes: +ACET-1008 PO; +AZEL137S4 BOTHNARES; +CHOL20002 PO; +DEXT15DR27 EACHEYE; +FURO-150 PO; -FURO80TA87 PO; +KETO5DRO11 EACHEYE; +LACT1CAP26 PO; +LORA10TA7 PO; +MULT-1085 PO; +OMEG1CAP61 PO; +PANT20TA2 PO; +POTA-188 PO; -TRAM50TA2 PO
[2021-10-31] MEDS ORDERED: fentaNYL/PF 50MCG/1 ML 2ML syringe IV ONE (11:30)
[2021-10-31] MEDS ORDERED: ondansetron/PF 4mg/2ml inj IV ONE (11:30)
[2021-10-31 11:38] LABS: BASOPHILS % (AUTO) 0.7 % (0-1); EOSINOPHILS # (AUTO) 0.1 X10'3 (0-0.9); EOSINOPHILS % (AUTO) 1.3 % (0-6); HEMATOCRIT 44.5 % (35.0-45.0); HEMOGLOBIN 14.4 g/dl (12.0-16.0); LYMPHOCYTES # (AUTO) 1.4 X10'3 (1.1-4.8); LYMPHOCYTES % (AUTO) 27.2 % (21-51); MEAN CORPUSCULAR HEMOGLOBIN 29.6 PG (27.0-31.0); MEAN CORPUSCULAR HGB CONC 32.4 g/dL (33.0-36.5); MEAN CORPUSCULAR VOLUME 91.4 FL (78-98); MEAN PLATELET VOLUME 9.5 FL (7.4-10.4); MONOCYTES # (AUTO) 0.5 X10'3 (0-0.9); MONOCYTES % (AUTO) 10.2 % (2-12); NEUTROPHILS % (AUTO) 60.6 % (42-75); PLATELET COUNT 120 X10'3 (140-440); RED BLOOD COUNT 4.87 X10'6 (4.20-5.60)
[2021-10-31 11:57] LABS: ALANINE AMINOTRANSFERASE 23 U/L (12-78); ALBUMIN 3.8 G/DL (3.4-5.0); ALBUMIN/GLOBULIN RATIO 1.2 (1.1-1.5); ANION GAP 12 (8-16); ASPARTATE AMINO TRANSFERASE 20 U/L (10-37); BILIRUBIN,TOTAL 0.7 MG/DL (0.1-1.0); BLOOD UREA NITROGEN 25 MG/DL (7-18); BUN/CREATININE RATIO 25.3 (6.6-38.0); CALCIUM 8.7 MG/DL (8.5-10.1); CHLORIDE 106 MMOL/L (99-107); CREATININE 0.99 MG/DL (0.40-0.90); GLUCOSE 99 MG/DL (70-104); POTASSIUM 4.2 MMOL/L (3.5-5.1); SODIUM 147 MMOL/L (135-145); TOTAL CARBON DIOXIDE 28.7 MMOL/L (24-32); eGFR 54 ML/MIN
[2021-10-31 12:36] LABS: COLOR,URINE YELLOW (Yellow); GLUCOSE, URINE NEGATIVE (Neg); KETONES,URINE NEGATIVE (Neg); LEUKOCYTE ESTERASE ,URINE NEGATIVE (Neg); NITRITES, URINE NEGATIVE (Neg); OCCULT BLOOD,URINE NEGATIVE (Neg); PH,URINE 7.5 (4.8-8.0); PROTEIN,URINE NEGATIVE (Neg)
[2021-10-31] MEDS ORDERED: normal saline 1000ml 1,000 ML IV ONE (12:45)
[2021-10-31] MEDS ORDERED: ketorolac trometh. 30mg/ml inj. IV ONE (12:45)
[2021-10-31 12:47] LABS: CLARITY,URINE SLIGHTLY CLOUDY (Clear); RBC,URINE NONE SEEN /HPF (0-2); SQUAMOUS EPITHELIAL CELL,UR MANY /LPF (FEW); UA COLLECTION TYPE NON-SPECIFIED; WBC,URINE 0-4 /HPF (0-4)
[2021-10-31 12:48] LABS: BACTERIA,URINE 1+ /HPF (Neg)
--- NOTE | 2021-10-31 12:53 | NUR ---
c collar cleared by dr. oconnor. 1L ns started, pt reufusing additional pain meds at this time.
[2021-10-31] MEDS ORDERED: ONDA-103 PO (13:55)
[2021-10-31 14:43] VITALS: BP 105/73
== END 2021-10-31 14:53 | disposition home or self-care (01) ==
LOC: ER 09:53
DX: S09.90XA Unspecified injury of head, initial encounter (principal); R42 Dizziness and giddiness; R51.9 Headache, unspecified; R11.0 Nausea; R55 Syncope and collapse; E11.65 Type 2 diabetes mellitus with hyperglycemia; I48.91 Unspecified atrial fibrillation; I25.10 Atherosclerotic heart disease of native coronary artery without angina pectoris; I11.0 Hypertensive heart disease with heart failure; I50.9 Heart failure, unspecified; E78.00 Pure hypercholesterolemia, unspecified; I25.2 Old myocardial infarction; J45.909 Unspecified asthma, uncomplicated; K21.9 Gastro-esophageal reflux disease without esophagitis; E03.9 Hypothyroidism, unspecified; M19.90 Unspecified osteoarthritis, unspecified site; G89.29 Other chronic pain; F32.A Depression, unspecified; Z87.01 Personal history of pneumonia (recurrent); Z87.11 Personal history of peptic ulcer disease; Z87.442 Personal history of urinary calculi; Z90.89 Acquired absence of other organs; Z90.49 Acquired absence of other specified parts of digestive tract; Z90.710 Acquired absence of both cervix and uterus; Z98.890 Other specified postprocedural states; Z60.2 Problems related to living alone; Z88.8 Allergy status to other drugs, medicaments and biological substances; Z88.5 Allergy status to narcotic agent; Z79.899 Other long term (current) drug therapy; W19.XXXA Unspecified fall, initial encounter; Y93.89 Activity, other specified; Y92.89 Other specified places as the place of occurrence of the external cause; Y99.8 Other external cause status
CPT/HCPCS: 36415; 70450; 71045; 72125; 73030; 73560; 80053; 81001; 82948; 84484; 85025; 85379; 85610; 93005; 96361; 96374; 96375; 99285; J2405; J3010; J7030

== ENCOUNTER 2022-01-23 09:22 | Day surgery (SDC) | payer MEDICARE, MEDICAID ==
[~2022-01-23] VITALS: Ht 144.8 cm; Wt 112.0 kg
[~2022-01-23 09:22] MED LIST changes: +ONDA-103 PO
[2022-01-23 09:33] VITALS: BP 134/64
[2022-01-23] MEDS ORDERED: OXYB5TAB16 PO (09:49)
[2022-01-23 10:25] VITALS: BP 128/72
[2022-01-23 10:35] VITALS: BP 121/52
[2022-01-23] MEDS ORDERED: fentaNYL/PF 50MCG/1 ML 2ML syringe ONE (10:35)
[2022-01-23] MEDS ORDERED: MIDAZolam 1 MG/ML 5ML VIAL ONE (10:35)
[2022-01-23 10:45] VITALS: BP 108/50
[2022-01-23 10:55] VITALS: BP 109/47
== END 2022-01-23 11:05 | disposition home or self-care (01) ==
LOC: GI LAB 09:22
PROVIDERS: ATTEND Internal Medicine Gastroenterology
DX: D12.3 Benign neoplasm of transverse colon (principal); D17.5 Benign lipomatous neoplasm of intra-abdominal organs; K57.30 Diverticulosis of large intestine without perforation or abscess without bleeding; K63.89 Other specified diseases of intestine; Z95.0 Presence of cardiac pacemaker; Z88.5 Allergy status to narcotic agent; Z88.8 Allergy status to other drugs, medicaments and biological substances; Z79.899 Other long term (current) drug therapy
CPT/HCPCS: 45380; 45385; 88305; 99153; C1773; G0500; J2250; J3010; J7030; Z7512; 99152; A4620

== ENCOUNTER 2022-06-19 20:44 | Emergency (ER) | payer MEDICARE, MEDICAID ==
[~2022-06-19] VITALS: Ht 144.8 cm; Wt 117.3 kg
[~2022-06-19 20:44] MED LIST changes: +CYCL-1 PO; +ONDA4TAB12 PO; +OXYB5TAB16 PO
[2022-06-19 20:51] VITALS: BP 168/77
[2022-06-19 21:21] LABS: BASOPHILS # (AUTO) 0.1 X10'3 (0-0.2); BASOPHILS % (AUTO) 0.9 % (0-1); EOSINOPHILS # (AUTO) 0.1 X10'3 (0-0.9); EOSINOPHILS % (AUTO) 1.2 % (0-6); HEMATOCRIT 45.2 % (35.0-45.0); HEMOGLOBIN 14.8 g/dl (12.0-16.0); LYMPHOCYTES # (AUTO) 2.1 X10'3 (1.1-4.8); LYMPHOCYTES % (AUTO) 27.4 % (21-51); MEAN CORPUSCULAR HEMOGLOBIN 29.7 PG (27.0-31.0); MEAN CORPUSCULAR HGB CONC 32.8 g/dL (33.0-36.5); MEAN CORPUSCULAR VOLUME 90.6 FL (78-98); MEAN PLATELET VOLUME 8.8 FL (7.4-10.4); MONOCYTES # (AUTO) 0.7 X10'3 (0-0.9); MONOCYTES % (AUTO) 9.3 % (2-12); NEUTROPHILS # (AUTO) 4.7 X10'3 (1.8-7.7); NEUTROPHILS % (AUTO) 61.2 % (42-75); PLATELET COUNT 153 X10'3 (140-440); RED BLOOD COUNT 4.99 X10'6 (4.20-5.60); RED CELL DISTRIBUTION WIDTH 16.8 % (11.5-14.5); WHITE BLOOD COUNT 7.7 X10'3 (4.5-11.0)
[2022-06-19 21:40] LABS: ALANINE AMINOTRANSFERASE 16 U/L (12-78); ALBUMIN 3.4 G/DL (3.4-5.0); ALBUMIN/GLOBULIN RATIO 0.9 (1.1-1.5); ALKALINE PHOSPHATASE 68 IU/L (46-116); ANION GAP 12 (8-16); BILIRUBIN,TOTAL 0.3 MG/DL (0.1-1.0); BLOOD UREA NITROGEN 35 MG/DL (7-18); CALCIUM 9.2 MG/DL (8.5-10.1); CHLORIDE 105 MMOL/L (99-107); GLUCOSE 131 MG/DL (70-104); LIPASE 91 U/L (73-393); SODIUM 143 MMOL/L (135-145); TOTAL CARBON DIOXIDE 26.5 MMOL/L (24-32); TOTAL PROTEIN 7.4 G/DL (6.4-8.2); eGFR 53 ML/MIN
[2022-06-19 21:50] LABS: ASPARTATE AMINO TRANSFERASE 19 U/L (10-37); POTASSIUM 4.2 MMOL/L (3.5-5.1)
== END 2022-06-20 01:20 | disposition left against medical advice (07) ==
LOC: ER 20:45
DX: K62.5 Hemorrhage of anus and rectum (principal); Z53.21 Procedure and treatment not carried out due to patient leaving prior to being seen by health care provider
CPT/HCPCS: 36415; 80053; 83690; 85025

== ENCOUNTER 2022-07-08 10:51 | Outpatient (CLI) | payer MEDICARE, MEDICAID | END 2022-07-08 23:59 | disposition home or self-care (01) | LOC: RAD 10:51 | PROVIDERS: ATTEND Nurse Practitioner | DX: M47.815 Spondylosis without myelopathy or radiculopathy, thoracolumbar region (principal); Z96.82 Presence of neurostimulator | CPT/HCPCS: 72110 ==

== ENCOUNTER 2022-08-26 11:00 | Emergency (ER) | payer MEDICARE, MEDICAID ==
[~2022-08-26] VITALS: Ht 144.8 cm; Wt 116.7 kg
[2022-08-26 11:35] VITALS: BP 150/78
[2022-08-26] MEDS ORDERED: ketorolac trometh. 30mg/ml inj. IM ONE (19:35)
[2022-08-26] MEDS ORDERED: orphenadrine citrate 60mg/2ml inj. IM ONE (19:35)
[2022-08-26] MEDS ORDERED: METH4TAB3 PO (19:40)
[2022-08-26] MEDS ORDERED: TRAM50TA2 PO ×2 (19:40→19:42)
[2022-08-26] MEDS ORDERED: ORPH100T2 PO (19:55)
--- NOTE | 2022-08-26 20:14 | NUR ---
Agree with assessment of RN HEMO DIALYSIS.
== END 2022-08-26 21:04 | disposition home or self-care (01) ==
LOC: ER 11:00
DX: S22.069A Unspecified fracture of T7-T8 vertebra, initial encounter for closed fracture (principal); M54.2 Cervicalgia; I11.0 Hypertensive heart disease with heart failure; I50.9 Heart failure, unspecified; E78.00 Pure hypercholesterolemia, unspecified; J45.909 Unspecified asthma, uncomplicated; K21.9 Gastro-esophageal reflux disease without esophagitis; E11.9 Type 2 diabetes mellitus without complications; M19.90 Unspecified osteoarthritis, unspecified site; Z88.5 Allergy status to narcotic agent; Z88.8 Allergy status to other drugs, medicaments and biological substances; W19.XXXA Unspecified fall, initial encounter; Y93.89 Activity, other specified; Y92.89 Other specified places as the place of occurrence of the external cause; Y99.8 Other external cause status
CPT/HCPCS: 72125; 72128; 72131; 96372; 99284; J1885; J2360

== ENCOUNTER 2023-09-05 12:05 | Inpatient (IN) | payer MEDICARE, MEDICAID ==
[~2023-09-05] VITALS: Ht 144.8 cm; Wt 115.9 kg
[~2023-09-05 12:05] MED LIST changes: +KETO-96 EACHEYE; -KETO5DRO11 EACHEYE; +METH4TAB3 PO; +ORPH100T4 PO; -OXYB5TAB16 PO; +OXYB5TAB17 PO; -ROSU20TA31; +ROSU20TA73
[2023-09-05] MEDS ORDERED: ondansetron/PF 4mg/2ml inj IV ONE (12:40)
[2023-09-05 13:49] LABS: BILIRUBIN,URINE NEGATIVE (Neg); CLARITY,URINE CLEAR (Clear); COLOR,URINE YELLOW (Yellow); GLUCOSE, URINE NEGATIVE (Neg); KETONES,URINE NEGATIVE (Neg); LEUKOCYTE ESTERASE ,URINE NEGATIVE (Neg); NITRITES, URINE NEGATIVE (Neg); OCCULT BLOOD,URINE TRACE-INTACT (Neg); PH,URINE 7.5 (4.8-8.0); PROTEIN,URINE NEGATIVE (Neg); UROBILINOGEN,URINE 0.2 E.U/dL (0.2-1.0)
[2023-09-05 13:50] LABS: UA COLLECTION TYPE STRAIGHT CATH
[2023-09-05 13:58] LABS: RBC,URINE 0-2 /HPF (0-2)
[2023-09-05 13:59] LABS: BACTERIA,URINE FEW /HPF (Neg); HYALINE CASTS 0-3 /LPF (NEGATIVE); MUCUS STRANDS NONE SEEN /LPF (Neg); SQUAMOUS EPITHELIAL CELL,UR NONE SEEN /LPF (FEW); WBC CLUMPS,URINE FEW /HPF (NEGATIVE)
[2023-09-05 14:02] LABS: RENAL CELLS, URINE FEW /HPF; TRANSITIONAL EPI CELLS,URINE MODERATE /HPF
[2023-09-05 14:25] LABS: BASOPHILS % (AUTO) 0.2 % (0-1); EOSINOPHILS % (AUTO) 0.1 % (0-6); HEMATOCRIT 48.9 % (35.0-45.0); HEMOGLOBIN 15.9 g/dl (12.0-16.0); LYMPHOCYTES # (AUTO) 1.2 X10'3 (1.1-4.8); LYMPHOCYTES % (AUTO) 11.8 % (21-51); MEAN CORPUSCULAR HGB CONC 32.5 g/dL (33.0-36.5); MEAN PLATELET VOLUME 8.8 FL (7.4-10.4); MONOCYTES # (AUTO) 0.9 X10'3 (0-0.9); MONOCYTES % (AUTO) 8.4 % (2-12); NEUTROPHILS # (AUTO) 8.3 X10'3 (1.8-7.7); NEUTROPHILS % (AUTO) 79.5 % (42-75); PLATELET COUNT 108 X10'3 (140-440); RED BLOOD COUNT 5.49 X10'6 (4.20-5.60); RED CELL DISTRIBUTION WIDTH 18.5 % (11.5-14.5); WHITE BLOOD COUNT 10.5 X10'3 (4.5-11.0)
[2023-09-05 14:39] LABS: ALANINE AMINOTRANSFERASE 14 U/L (12-78); ALBUMIN 3.3 G/DL (3.4-5.0); ALBUMIN/GLOBULIN RATIO 0.7 (1.1-1.5); ALKALINE PHOSPHATASE 74 IU/L (46-116); ANION GAP 10 (8-16); ASPARTATE AMINO TRANSFERASE 16 U/L (10-37); BILIRUBIN,TOTAL 0.9 MG/DL (0.1-1.0); BLOOD UREA NITROGEN 10 MG/DL (7-18); BUN/CREATININE RATIO 10.8 (10.0-20.0); CALCIUM 9.6 MG/DL (8.5-10.1); CHLORIDE 99 MMOL/L (99-107); CREATININE 0.93 MG/DL (0.40-0.90); GLUCOSE 115 MG/DL (70-104); POTASSIUM 3.6 MMOL/L (3.5-5.1); PRO BRAIN NATRIURETIC PEPTIDE 1272 PG/ML (0-450); SODIUM 139 MMOL/L (135-145); TOTAL CARBON DIOXIDE 29.7 MMOL/L (24-32); TOTAL PROTEIN 8.2 G/DL (6.4-8.2); eCRCL 28 ML/MIN; eGFR 58 ML/MIN
[2023-09-05] MEDS ORDERED: acetaminophen 325mg tablet PO STA (15:20)
[2023-09-05] MEDS ORDERED: magnesium hydroxide 30ml (MOM) UD suspension PO PRN (16:45)
[2023-09-05] MEDS ORDERED: magnesium 2GM in 50ml NS 50 ML IV PRN (16:45)
[2023-09-05] MEDS ORDERED: magnesium 4gm in 100ml NS 100 ML IV PRN (16:45)
[2023-09-05] MEDS ORDERED: magnesium Cl slow-release 64mg tablet PO PRN (16:45)
[2023-09-05] MEDS ORDERED: potassium Cl 20 mEq SR tablet PO PRN ×2 (16:45)
[2023-09-05] MEDS ORDERED: potassium Cl 40MEQ/1/2NS 520ml 520 ML IV PRN (16:45)
[2023-09-05] MEDS ORDERED: acetaminophen 325mg tablet PO PRN (16:45)
[2023-09-05] MEDS ORDERED: LIDOcaine 5% patch TP ONE (16:55)
[2023-09-05] MEDS ORDERED: ketorolac tromethamine 15mg/ml inj. IV ONE (16:55)
[2023-09-05] MEDS: rivaroxaban 20mg tablet PO SCH (17:24)
[2023-09-05] MEDS: K and/or MAG REPLACEMENT MC SCH (19:51)
[2023-09-05] MEDS: furosemide 20MG tablet PO SCH (19:59)
[2023-09-05] MEDS: pregabalin 25mg capsule PO SCH (20:04)
[2023-09-05] MEDS: traMADol 50MG tablet PO PRN (20:32)
[2023-09-06] VITALS (10 sets, daily range): BP systolic 112–157; BP diastolic 42–75; PULSE 64–77; RESP 16–20; TEMP 96.9–98.7; O2SAT 18–97
[2023-09-06] MEDS: traMADol 50MG tablet PO PRN ×2 (03:10→19:45)
[2023-09-06 05:30] LABS: BASOPHILS % (AUTO) 0.3 % (0-1); EOSINOPHILS % (AUTO) 0.1 % (0-6); HEMATOCRIT 44.1 % (35.0-45.0); HEMOGLOBIN 14.4 g/dl (12.0-16.0); LYMPHOCYTES # (AUTO) 1.4 X10'3 (1.1-4.8); LYMPHOCYTES % (AUTO) 15.1 % (21-51); MEAN CORPUSCULAR HEMOGLOBIN 28.8 PG (27.0-31.0); MEAN CORPUSCULAR HGB CONC 32.7 g/dL (33.0-36.5); MEAN CORPUSCULAR VOLUME 88.3 FL (78-98); MEAN PLATELET VOLUME 8.6 FL (7.4-10.4); MONOCYTES # (AUTO) 1.4 X10'3 (0-0.9); MONOCYTES % (AUTO) 15.6 % (2-12); NEUTROPHILS # (AUTO) 6.4 X10'3 (1.8-7.7); NEUTROPHILS % (AUTO) 68.9 % (42-75); PLATELET COUNT 107 X10'3 (140-440); RED BLOOD COUNT 4.99 X10'6 (4.20-5.60); RED CELL DISTRIBUTION WIDTH 18.3 % (11.5-14.5); WHITE BLOOD COUNT 9.2 X10'3 (4.5-11.0)
[2023-09-06 05:36] LABS: ALBUMIN 2.9 G/DL (3.4-5.0); ANION GAP 6 (8-16); BLOOD UREA NITROGEN 12 MG/DL (7-18); BUN/CREATININE RATIO 11.7 (10.0-20.0); CALCIUM 9.5 MG/DL (8.5-10.1); CHLORIDE 101 MMOL/L (99-107); CHOL/HDL RATIO 1.5 (0.00-4.99); CHOLESTEROL 107 MG/DL (0-200); CREATININE 1.03 MG/DL (0.40-0.90); GLUCOSE 121 MG/DL (70-104); HDL CHOLESTEROL 71 MG/DL (35-60); LDL CHOLESTEROL 25 MG/DL (50-100); POTASSIUM 3.3 MMOL/L (3.5-5.1); SODIUM 141 MMOL/L (135-145); TOTAL CARBON DIOXIDE 34.3 MMOL/L (24-32); TRIGLYCERIDES 51 MG/DL (20-135); eCRCL 25 ML/MIN; eGFR 51 ML/MIN
[2023-09-06] MEDS: levoTHYROXINE 75mcg tablet PO SCH (07:38)
[2023-09-06] MEDS: furosemide 20MG tablet PO SCH ×2 (07:38→19:35)
[2023-09-06] MEDS: pregabalin 25mg capsule PO SCH ×2 (07:38→19:45)
[2023-09-06] MEDS: LIDOcaine 5% patch TP SCH (07:39)
[2023-09-06] MEDS: K and/or MAG REPLACEMENT MC SCH ×2 (07:40→19:34)
[2023-09-06] MEDS ORDERED: POTASSIUM BICARB 20meq eff tab 20 MEQ TABLET.EFF PO PRN (07:50)
[2023-09-06] MEDS: POTASSIUM BICARB 20meq eff tab 20 MEQ TABLET.EFF PO PRN ×3 (09:11→17:45)
[2023-09-06] MEDS ORDERED: non-formulary drug (Alendronate Sodium* (Fosamax*) 1 TAB) PO SCH (13:40)
[2023-09-06] MEDS: normal saline 1000ml 1,000 ML IV SCH (14:05)
[2023-09-06] MEDS: CefTRIAXone/D5W-Rocephin 1gm 50 ML IV SCH (15:10)
[2023-09-06] MEDS: HYDROmorphone 1 mg/ml syringe IV PRN (15:12)
[2023-09-06] MEDS: acetaminophen 325mg tablet PO SCH (17:45)
[2023-09-06] MEDS: phenazopyridine 100mg tablet PO SCH (17:45)
[2023-09-06] MEDS: rivaroxaban 20mg tablet PO SCH (17:45)
[2023-09-06] MEDS: [UNRECOGNIZED DRUG - OTHER] EACHEYE SCH (19:34)
[2023-09-06] MEDS: atorvastatin 20mg tablet PO SCH (19:45)
[2023-09-06] MEDS: lactobacillus rhamnosus 10,000 MMU CELLS/CAPSULE PO SCH (19:45)
[2023-09-06] MEDS: polyvinyl alcohol ophthalmic drops 15ml bottle EACHEYE SCH (19:46)
[2023-09-07] MEDS: HYDROmorphone 1 mg/ml syringe IV PRN ×2 (01:47→17:55)
[2023-09-07] MEDS: normal saline 1000ml 1,000 ML IV SCH ×2 (02:57→20:40)
[2023-09-07 05:35] LABS: BASOPHILS # (AUTO) 0.1 X10'3 (0-0.2); BASOPHILS % (AUTO) 0.4 % (0-1); EOSINOPHILS # (AUTO) 0.1 X10'3 (0-0.9); EOSINOPHILS % (AUTO) 0.5 % (0-6); HEMATOCRIT 44.7 % (35.0-45.0); HEMOGLOBIN 14.5 g/dl (12.0-16.0); LYMPHOCYTES # (AUTO) 1.1 X10'3 (1.1-4.8); LYMPHOCYTES % (AUTO) 8.7 % (21-51); MEAN CORPUSCULAR HEMOGLOBIN 28.9 PG (27.0-31.0); MEAN CORPUSCULAR HGB CONC 32.4 g/dL (33.0-36.5); MEAN CORPUSCULAR VOLUME 89.4 FL (78-98); MEAN PLATELET VOLUME 9.3 FL (7.4-10.4); MONOCYTES # (AUTO) 0.5 X10'3 (0-0.9); NEUTROPHILS % (AUTO) 86.4 % (42-75); PLATELET COUNT 123 X10'3 (140-440); RED CELL DISTRIBUTION WIDTH 18.3 % (11.5-14.5); WHITE BLOOD COUNT 12.7 X10'3 (4.5-11.0)
[2023-09-07 05:43] LABS: ALBUMIN 2.7 G/DL (3.4-5.0); ANION GAP 8 (8-16); BLOOD UREA NITROGEN 17 MG/DL (7-18); BUN/CREATININE RATIO 14.8 (10.0-20.0); CALCIUM 9.3 MG/DL (8.5-10.1); CHLORIDE 99 MMOL/L (99-107); CREATININE 1.15 MG/DL (0.40-0.90); GLUCOSE 145 MG/DL (70-104); POTASSIUM 3.8 MMOL/L (3.5-5.1); SODIUM 138 MMOL/L (135-145); eCRCL 23 ML/MIN; eGFR 45 ML/MIN
[2023-09-07] MEDS ORDERED: HALLS - SOOTHE MENTHOL 1.8 MG cough drop LOZENGE MM PRN (05:55)
[2023-09-07 06:00] VITALS: BP 96/61; PULSE 55; RESP 16; TEMP 98.4; O2SAT 95
[2023-09-07] MEDS: levoTHYROXINE 75mcg tablet PO SCH (07:21)
[2023-09-07] MEDS: [UNRECOGNIZED DRUG - OTHER] EACHEYE SCH (08:00)
[2023-09-07] MEDS ORDERED: oxybutynin 5mg tablet PO SCH (08:00)
[2023-09-07] MEDS: K and/or MAG REPLACEMENT MC SCH ×2 (08:00→20:00)
[2023-09-07] MEDS: LIDOcaine 5% patch TP SCH (08:38)
[2023-09-07] MEDS: pregabalin 25mg capsule PO SCH ×2 (08:38→20:27)
[2023-09-07] MEDS: furosemide 20MG tablet PO SCH ×2 (08:38→17:54)
[2023-09-07] MEDS: cholecalciferol (vitamin D3) 1,000 unit (25mcg) tablet PO SCH (08:39)
[2023-09-07] MEDS: phenazopyridine 100mg tablet PO SCH ×3 (08:39→17:53)
[2023-09-07] MEDS: lactobacillus rhamnosus 10,000 MMU CELLS/CAPSULE PO SCH ×2 (08:39→20:27)
[2023-09-07] MEDS: multivitamins, therapeutics tablet PO SCH (08:39)
[2023-09-07] MEDS: pantoprazole 40mg Tablet.DR PO SCH (08:40)
[2023-09-07] MEDS: traMADol 50MG tablet PO PRN (08:41)
[2023-09-07] MEDS: acetaminophen 325mg tablet PO SCH ×3 (08:41→17:54)
[2023-09-07] MEDS: CefTRIAXone/D5W-Rocephin 1gm 50 ML IV SCH (08:42)
[2023-09-07] MEDS: polyvinyl alcohol ophthalmic drops 15ml bottle EACHEYE SCH ×2 (08:42→20:28)
[2023-09-07 10:00] VITALS: BP 133/56; PULSE 70; RESP 18; TEMP 98.4; O2SAT 91
[2023-09-07] MEDS: rivaroxaban 20mg tablet PO SCH (17:53)
[2023-09-07 18:00] VITALS: BP 125/54; PULSE 75; RESP 16; TEMP 97.9; O2SAT 95
[2023-09-07] MEDS: atorvastatin 20mg tablet PO SCH (20:27)
[2023-09-07 20:43] VITALS: RESP 16; O2SAT 95
[2023-09-07 22:00] VITALS: BP 106/49; PULSE 69; RESP 16; TEMP 98.5; O2SAT 93
[2023-09-08] MEDS: acetaminophen 325mg tablet PO SCH ×2 (00:13→08:34)
[2023-09-08] MEDS: normal saline 1000ml 1,000 ML IV SCH (03:50)
[2023-09-08 06:00] VITALS: BP 112/59; PULSE 60; RESP 16; TEMP 97.6; O2SAT 96
[2023-09-08 06:09] VITALS: RESP 19
[2023-09-08] MEDS: HYDROmorphone 1 mg/ml syringe IV PRN (06:09)
[2023-09-08 06:46] LABS: BASOPHILS # (AUTO) 0.1 X10'3 (0-0.2); BASOPHILS % (AUTO) 0.5 % (0-1); EOSINOPHILS # (AUTO) 0.3 X10'3 (0-0.9); EOSINOPHILS % (AUTO) 2.6 % (0-6); HEMATOCRIT 43.5 % (35.0-45.0); HEMOGLOBIN 14.3 g/dl (12.0-16.0); LYMPHOCYTES # (AUTO) 1.7 X10'3 (1.1-4.8); MEAN CORPUSCULAR HEMOGLOBIN 29.3 PG (27.0-31.0); MEAN CORPUSCULAR HGB CONC 32.8 g/dL (33.0-36.5); MEAN CORPUSCULAR VOLUME 89.3 FL (78-98); MONOCYTES # (AUTO) 0.9 X10'3 (0-0.9); MONOCYTES % (AUTO) 7.3 % (2-12); NEUTROPHILS # (AUTO) 9.3 X10'3 (1.8-7.7); NEUTROPHILS % (AUTO) 75.6 % (42-75); PLATELET COUNT 134 X10'3 (140-440); RED BLOOD COUNT 4.87 X10'6 (4.20-5.60); RED CELL DISTRIBUTION WIDTH 18.5 % (11.5-14.5); WHITE BLOOD COUNT 12.3 X10'3 (4.5-11.0)
[2023-09-08 06:53] LABS: ALBUMIN 2.6 G/DL (3.4-5.0); ANION GAP 8 (8-16); BLOOD UREA NITROGEN 21 MG/DL (7-18); BUN/CREATININE RATIO 14.2 (10.0-20.0); CALCIUM 9.2 MG/DL (8.5-10.1); CHLORIDE 101 MMOL/L (99-107); CREATININE 1.48 MG/DL (0.40-0.90); GLUCOSE 131 MG/DL (70-104); POTASSIUM 3.5 MMOL/L (3.5-5.1); SODIUM 140 MMOL/L (135-145); TOTAL CARBON DIOXIDE 30.7 MMOL/L (24-32); eCRCL 18 ML/MIN; eGFR 34 ML/MIN
[2023-09-08] MEDS: levoTHYROXINE 75mcg tablet PO SCH (06:58)
[2023-09-08] MEDS: CefTRIAXone/D5W-Rocephin 1gm 50 ML IV SCH (08:00)
[2023-09-08] MEDS: K and/or MAG REPLACEMENT MC SCH (08:00)
[2023-09-08] MEDS: furosemide 20MG tablet PO SCH (08:00)
[2023-09-08] MEDS: pregabalin 25mg capsule PO SCH (08:30)
[2023-09-08] MEDS: phenazopyridine 100mg tablet PO SCH (08:32)
[2023-09-08] MEDS: multivitamins, therapeutics tablet PO SCH (08:34)
[2023-09-08] MEDS: LIDOcaine 5% patch TP SCH (08:35)
[2023-09-08] MEDS: pantoprazole 40mg Tablet.DR PO SCH (08:35)
[2023-09-08] MEDS: lactobacillus rhamnosus 10,000 MMU CELLS/CAPSULE PO SCH (08:35)
[2023-09-08] MEDS: polyvinyl alcohol ophthalmic drops 15ml bottle EACHEYE SCH (08:35)
[2023-09-08] MEDS: cholecalciferol (vitamin D3) 1,000 unit (25mcg) tablet PO SCH (08:35)
[2023-09-08] MEDS ORDERED: NITR100C6 PO (11:05)
== END 2023-09-08 13:55 | disposition home or self-care (01) | DRG 557 ==
LOC: ER 12:06 → ED HOLD 16:50 → EDBEDREQ 23:55 → ORTHO 4S 09-06 00:18
PROVIDERS: ADMIT Family Medicine; ATTEND Family Medicine
PROC: 5A09357 Assistance with Respiratory Ventilation, Less than 24 Consecutive Hours, Continuous Positive Airway Pressure (ICD-10-PCS; principal; 2023-09-07)
PROC: 5A09357 Assistance with Respiratory Ventilation, Less than 24 Consecutive Hours, Continuous Positive Airway Pressure (ICD-10-PCS; 2023-09-08)
DX: M75.101 Unspecified rotator cuff tear or rupture of right shoulder, not specified as traumatic (principal); N17.0 Acute kidney failure with tubular necrosis; N39.0 Urinary tract infection, site not specified; I45.2 Bifascicular block; I48.20 Chronic atrial fibrillation, unspecified; I50.32 Chronic diastolic (congestive) heart failure; I13.0 Hypertensive heart and chronic kidney disease with heart failure and stage 1 through stage 4 chronic kidney disease, or unspecified chronic kidney disease; M19.011 Primary osteoarthritis, right shoulder; E03.9 Hypothyroidism, unspecified; E11.42 Type 2 diabetes mellitus with diabetic polyneuropathy; E78.00 Pure hypercholesterolemia, unspecified; G47.33 Obstructive sleep apnea (adult) (pediatric); I49.5 Sick sinus syndrome; M79.7 Fibromyalgia; J45.909 Unspecified asthma, uncomplicated; I25.10 Atherosclerotic heart disease of native coronary artery without angina pectoris; I25.2 Old myocardial infarction; Z95.0 Presence of cardiac pacemaker; Z90.710 Acquired absence of both cervix and uterus; Z90.49 Acquired absence of other specified parts of digestive tract; Z87.442 Personal history of urinary calculi; Z87.11 Personal history of peptic ulcer disease; Z80.0 Family history of malignant neoplasm of digestive organs; Z79.01 Long term (current) use of anticoagulants; Z79.899 Other long term (current) drug therapy; N18.30 Chronic kidney disease, stage 3 unspecified
CPT/HCPCS: 36415; 71045; 73030; 73090; 73200; 74018; 80048; 80053; 80061; 81001; 83036; 83735; 83880; 84145; 84484; 85025; 85651; 87077; 87081; 87088; 87186; 87207; 93005; 93306; 96374; 97161; 97530; 99285; A4565; A4615; A6258; C1758; G0378; J0696; J1170; J2405; J7030

== ENCOUNTER 2024-01-09 10:51 | Day surgery (SDC) | payer MEDICARE, MEDICAID ==
[~2024-01-09] VITALS: Ht 144.8 cm; Wt 110.0 kg
[~2024-01-09 10:51] MED LIST changes: -FURO-150 PO; -METH4TAB3 PO; +NITR100C6 PO; -ONDA-103 PO; -ORPH100T4 PO; -OXYB5TAB17 PO; +OXYB5TAB21 PO; -POTA-188 PO
[2024-01-09 13:50] VITALS: BP 155/66; PULSE 60; RESP 10
[2024-01-09] MEDS ORDERED: FURO-149 PO (14:00)
[2024-01-09] MEDS ORDERED: TRAM50TA2 PO (14:01)
[2024-01-09] MEDS ORDERED: SIMV-42 PO (14:02)
[2024-01-09] MEDS ORDERED: MIDAZolam 1 MG/ML 5ML VIAL ONE (14:56)
[2024-01-09] MEDS ORDERED: diphenhydrAMINE 50 mg/ml inj ONE (14:56)
[2024-01-09] MEDS ORDERED: LIDOcaine 2% Viscous 15ml cup ONE (14:56)
[2024-01-09] MEDS ORDERED: fentaNYL/PF 50MCG/1 ML 2ML syringe ONE (14:56)
[2024-01-09 15:19] VITALS: BP 126/72; PULSE 63; RESP 14; O2SAT 94
[2024-01-09 15:29] VITALS: BP 128/68; PULSE 60; RESP 19; O2SAT 94
[2024-01-09 15:39] VITALS: BP 135/72; PULSE 60; RESP 14; O2SAT 95
[2024-01-09 15:49] VITALS: BP 166/96; PULSE 62; RESP 16; O2SAT 95
== END 2024-01-09 16:00 | disposition home or self-care (01) ==
LOC: GI LAB 10:51
PROVIDERS: ATTEND Internal Medicine Gastroenterology
DX: K92.1 Melena (principal); K44.9 Diaphragmatic hernia without obstruction or gangrene; K31.89 Other diseases of stomach and duodenum
CPT/HCPCS: 43239; J2250; J3010; J7030; Z7512; 99152; A4620; J1200

== ENCOUNTER 2024-08-11 10:33 | Day surgery (SDC) | payer MEDICARE, MEDICAID ==
[2024-08-10 12:35] LABS: BASOPHILS % (AUTO) 0.5 % (0-1); EOSINOPHILS % (AUTO) 0.2 % (0-6); HEMATOCRIT 39.1 % (35.0-45.0); HEMOGLOBIN 13.1 g/dl (12.0-16.0); LYMPHOCYTES # (AUTO) 1.1 X10'3 (1.1-4.8); LYMPHOCYTES % (AUTO) 14.8 % (21-51); MEAN CORPUSCULAR HEMOGLOBIN 30.8 PG (27.0-31.0); MEAN CORPUSCULAR HGB CONC 33.5 g/dL (33.0-36.5); MEAN CORPUSCULAR VOLUME 91.9 FL (78-98); MEAN PLATELET VOLUME 8.6 FL (7.4-10.4); MONOCYTES # (AUTO) 0.7 X10'3 (0-0.9); MONOCYTES % (AUTO) 9.3 % (2-12); NEUTROPHILS # (AUTO) 5.7 X10'3 (1.8-7.7); NEUTROPHILS % (AUTO) 75.2 % (42-75); PLATELET COUNT 140 X10'3 (140-440); RED BLOOD COUNT 4.25 X10'6 (4.20-5.60); RED CELL DISTRIBUTION WIDTH 18.5 % (11.5-14.5); WHITE BLOOD COUNT 7.6 X10'3 (4.5-11.0)
[2024-08-10 12:48] LABS: APTT 32 SECONDS (22-32); INR 1.1 INR; PROTHROMBIN TIME 11.9 SECONDS (9.0-12.0)
[2024-08-10 12:59] LABS: ALBUMIN 3.1 G/DL (3.4-5.0); BLOOD UREA NITROGEN 18 MG/DL (7-18); BUN/CREATININE RATIO 16.5 (10.0-20.0); CALCIUM 8.5 MG/DL (8.5-10.1); CREATININE 1.09 MG/DL (0.40-0.90); GLUCOSE 118 MG/DL (70-104); TOTAL CARBON DIOXIDE 29.1 MMOL/L (24-32); eGFR 48 ML/MIN
[2024-08-10 13:03] LABS: ANION GAP 10 (8-16); CHLORIDE 104 MMOL/L (99-107); POTASSIUM 3.5 MMOL/L (3.5-5.1); SODIUM 143 MMOL/L (135-145)
[~2024-08-11] VITALS: Ht 144.8 cm; Wt 104.3 kg
[2024-08-11] VITALS (14 sets, daily range): BP systolic 100–190; BP diastolic 32–93; PULSE 60–75; RESP 12–20; TEMP 97–98.4; O2SAT 86–96
[~2024-08-11 10:33] MED LIST changes: -CYCL-1 PO; +FURO-149 PO; -LACT1CAP26 PO; -NITR100C6 PO; -ONDA4TAB12 PO; -OXYB5TAB21 PO; -PREG50CA PO; -ROSU20TA73; +ROSU20TA98; +SIMV-42 PO; +TRAM50TA2 PO
[2024-08-11] MEDS ORDERED: diphenhydrAMINE 25mg capsule PO PRN (11:35)
[2024-08-11] MEDS: normal saline 1,000 ML IV SCH (11:35)
[2024-08-11] MEDS ORDERED: LORazepam 0.5 MG tablet PO PRN (11:35)
[2024-08-11] MEDS ORDERED: [UNRECOGNIZED DRUG - OTHER] PO (13:30)
[2024-08-11] MEDS ORDERED: CYAN-34 PO (13:30)
[2024-08-11] MEDS ORDERED: POTA99TA25 PO (13:30)
[2024-08-11] MEDS ORDERED: ONDA-104 PO (13:30)
[2024-08-11] MEDS ORDERED: OXYC1TAB17 PO (13:30)
[2024-08-11] MEDS ORDERED: METO-395 PO (13:30)
[2024-08-11] MEDS ORDERED: CHOL100040 PO (13:30)
[2024-08-11] MEDS ORDERED: ASCO500C17 PO (13:30)
[2024-08-11] MEDS ORDERED: PREG75CA76 PO (13:30)
[2024-08-11] MEDS ORDERED: FLUT1AER INH (13:30)
[2024-08-11] MEDS ORDERED: ALBU8HFA PO (13:30)
[2024-08-11] MEDS ORDERED: FLUT16SP11 BOTHNARES (13:30)
[2024-08-11] MEDS ORDERED: CARB15DR EACHEYE (13:31)
[2024-08-11] MEDS ORDERED: verapamil 2.5 mg/ml inj IV ONE (15:02)
[2024-08-11] MEDS ORDERED: midazolam 1 mg/ML 2ml injection ONE (15:02)
[2024-08-11] MEDS ORDERED: LIDOcaine 1% (10mg/ml) 2ml vial ONE ×2 (15:02→15:03)
[2024-08-11] MEDS ORDERED: iohexol 350 MG/ML 50ML vial IV ONE (15:03)
[2024-08-11] MEDS ORDERED: fentaNYL/PF 50MCG/1 ML 2ML syringe ONE (15:03)
[2024-08-11] MEDS ORDERED: iohexol 350MG/ML 100ml bottle IV ONE (15:03)
[2024-08-11] MEDS ORDERED: nitroGLYCERIN 500mcg/5mL D5W 5 ML IV ONE (15:03)
[2024-08-11] MEDS ORDERED: heparin 1,000unit/ml 10ml vial 10 ML ONE (15:03)
[2024-08-11] MEDS ORDERED: ondansetron/PF 4mg/2ml inj ONE (15:43)
[2024-08-11] MEDS ORDERED: LIDOcaine 1% 30ml preserv. free vial ONE (15:53)
[2024-08-11] MEDS ORDERED: HYDROmorphone 1 mg/ml syringe ONE (16:01)
[2024-08-11 16:21] LABS: ISTAT HGB ART 12.2 g/dl (12.0-16.0); ISTAT Hct ART 36 %PCV (35-45); ISTAT O2 SATURATION ARTERIAL 92 % (95-98); ISTAT SOURCE ART
[2024-08-11] MEDS: normal saline 1000ml 1,000 ML IV SCH (18:56)
[2024-08-11] MEDS: oxyCODONE/APAP 10/325mg tablet PO STA (18:56)
[2024-08-11] MEDS: ACETYLCYSTEINE 200 MG/1 ML 4 ML ORAL SOLUTION PO SCH (18:59)
[2024-08-11] MEDS ORDERED: albuterol 2.5 MG/3 ML nebule NEB PRN (19:30)
[2024-08-11] MEDS ORDERED: traMADol 50MG tablet PO PRN (19:30)
[2024-08-11] MEDS ORDERED: non-formulary drug (Alendronate Sodium* (Fosamax*) 1 TAB) PO SCH (19:30)
[2024-08-11] MEDS: pregabalin 75mg capsule PO SCH (21:51)
[2024-08-11] MEDS: atorvastatin 20mg tablet PO SCH (21:52)
[2024-08-11] MEDS: oxyCODONE/APAP 10/325mg tablet PO PRN (21:53)
[2024-08-11] MEDS: ondansetron 4mg rapidly disintigrating tab PO PRN (22:10)
[2024-08-12 00:13] VITALS: PULSE 68; RESP 17; O2SAT 97
[2024-08-12 02:00] VITALS: BP 105/51; PULSE 71; RESP 16; TEMP 97.6; O2SAT 100
[2024-08-12 03:32] VITALS: PULSE 60; RESP 14; O2SAT 98
[2024-08-12 06:00] VITALS: BP 126/62; PULSE 89; RESP 16; TEMP 97; O2SAT 94
[2024-08-12] MEDS: levoTHYROXINE 75mcg tablet PO SCH (07:18)
[2024-08-12] MEDS: pantoprazole 40mg Tablet.DR PO SCH (07:18)
[2024-08-12] MEDS ORDERED: CARBOXYMETHYLCELLULOSE SODIUM EACHEYE SCH (08:00)
[2024-08-12] MEDS: VILANTEROL IH SCH (08:00)
[2024-08-12] MEDS ORDERED: POTASSIUM GLUCONATE PO SCH (08:00)
[2024-08-12] MEDS: FLUTICASONE IH SCH (08:00)
[2024-08-12 08:33] LABS: ALBUMIN 2.7 G/DL (3.4-5.0); ANION GAP 8 (8-16); BLOOD UREA NITROGEN 17 MG/DL (7-18); BUN/CREATININE RATIO 15.3 (10.0-20.0); CALCIUM 8.1 MG/DL (8.5-10.1); CHLORIDE 107 MMOL/L (99-107); CREATININE 1.11 MG/DL (0.40-0.90); GLUCOSE 102 MG/DL (70-104); POTASSIUM 3.8 MMOL/L (3.5-5.1); PRO BRAIN NATRIURETIC PEPTIDE 2396 PG/ML (0-450); SODIUM 143 MMOL/L (135-145); TOTAL CARBON DIOXIDE 27.9 MMOL/L (24-32); eCRCL 23 ML/MIN; eGFR 47 ML/MIN
[2024-08-12 09:34] VITALS: PULSE 60; RESP 16; O2SAT 94
[2024-08-12] MEDS: fluticasone nasal spray 16GM bottle NS SCH (10:38)
[2024-08-12] MEDS: cholecalciferol (vitamin D3) 1,000 unit (25mcg) tablet PO SCH (10:40)
[2024-08-12] MEDS: rivaroxaban 20mg tablet PO SCH (10:40)
[2024-08-12] MEDS: lactobacillus rhamnosus 10,000 MMU CELLS/CAPSULE PO SCH (10:41)
[2024-08-12] MEDS: multivitamins, therapeutics tablet PO SCH (10:41)
[2024-08-12] MEDS: ascorbic acid 500mg tablet PO SCH (10:41)
[2024-08-12] MEDS: loratadine 10mg tablet PO SCH (10:41)
[2024-08-12] MEDS: cyanocobalamin 500mcg tablet PO SCH (10:42)
[2024-08-12] MEDS: furosemide 40mg tablet PO SCH (10:42)
[2024-08-12] MEDS: OMEGA-3/DHA/EPA/FISH OIL 1 EACH CAPSULE.DR PO SCH (10:42)
[2024-08-12] MEDS: metoprolol succinate 25mg (24-HOUR) SR. Tablet PO SCH (10:46)
[2024-08-12 11:00] VITALS: BP 112/61; PULSE 76; RESP 18; TEMP 97.6; O2SAT 97
[2024-08-12 13:33] LABS: ISTAT HGB MIX 12.2 g/dl (12.0-16.0); ISTAT Hct MIX 36 %PCV (35-45); ISTAT O2 SATURATION MIX VENOUS 49 % (60-80); ISTAT SOURCE VEN
== END 2024-08-12 16:15 | disposition home or self-care (01) ==
LOC: SSTAY O 10:33 → PCU 3S 19:30 → SSTAY O 08-12 16:15
PROVIDERS: ATTEND Internal Medicine Cardiovascular Disease
DX: R94.39 Abnormal result of other cardiovascular function study (principal); I25.10 Atherosclerotic heart disease of native coronary artery without angina pectoris; I11.0 Hypertensive heart disease with heart failure; I50.32 Chronic diastolic (congestive) heart failure; E11.9 Type 2 diabetes mellitus without complications; J44.89 Other specified chronic obstructive pulmonary disease; I48.20 Chronic atrial fibrillation, unspecified; I48.92 Unspecified atrial flutter; I35.0 Nonrheumatic aortic (valve) stenosis; G47.33 Obstructive sleep apnea (adult) (pediatric); Z87.440 Personal history of urinary (tract) infections; Z79.01 Long term (current) use of anticoagulants; Z79.890 Hormone replacement therapy; Z79.899 Other long term (current) drug therapy; E78.5 Hyperlipidemia, unspecified; Z90.49 Acquired absence of other specified parts of digestive tract; Z90.710 Acquired absence of both cervix and uterus; Z95.0 Presence of cardiac pacemaker; Z96.653 Presence of artificial knee joint, bilateral; Z98.890 Other specified postprocedural states; Z88.5 Allergy status to narcotic agent; Z88.8 Allergy status to other drugs, medicaments and biological substances; Z80.9 Family history of malignant neoplasm, unspecified; Z82.49 Family history of ischemic heart disease and other diseases of the circulatory system
CPT/HCPCS: 36415; 80048; 82803; 82948; 83880; 85014; 85025; 85610; 85730; 93005; 93460; 94660; 94760; 99152; 99153; A6258; A6402; C1725; C1751; C1769; C1894; J1171; J1644; J2003; J2250; J2405; J3010; J3490; J7030; Q9967; Z7610; 76937; G0378